=== PATIENT | female | born 1975 | race Caucasian/White ===

== ENCOUNTER 2024-06-21 18:39 | Inpatient (IN) | payer MEDICARE, OTHER ==
--- NOTE | 2024-06-21 19:26 | ED ---
Abdominal Pain HPI - General Chief Complaint: Abdominal Pain Stated Complaint: Abd pain Time Seen by Provider: 06/21/24 19:22 Source: patient, EMS, RN notes reviewed Mode of arrival: EMS - History of Present Illness Initial Comments: 49-year-old female with history of PCOS presenting for right lower quadrant abdominal pain x 5 days. Describes a constant pain with occasional shooting pains to the groin. States she has a history of PCOS with cysts worse on the right side and has been dealing with right pelvic pain for many years but states it is never been this bad. Also reports she has been dealing with intermittent vaginal bleeding for the past 4 months. States she bleeds more days than not. Reports the bleeding occasionally becomes heavy however today has only been light vaginal bleeding. 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 Also reports fevers over the past day however denies cough, nasal congestion, or sore throat. History of cholecystectomy. Denies vaginal discharge, nausea, vomiting, urinary symptoms, chest pain, or shortness of breath. She does admit a small amount of diarrhea this morning. - Related Data Allergies Allergy/AdvReac Type Severity Reaction Status Date / Time bee venom protein (honey bee) Allergy Swelling Verified 06/21/24 18:51 shellfish derived [Shellfish] Allergy Anaphylaxis Verified 06/21/24 18:51 Penicillins AdvReac Unknown Verified 06/21/24 18:51 Review of Systems ROS Statement: Those systems with pertinent positive or pertinent negative responses have been documented in the HPI. ROS Other: All systems not noted in ROS Statement are negative. Past Medical History Additional Past Medical History / Comment(s): PCOS, agoraphobia Past Surgical History: Cholecystectomy, Tonsillectomy Past Psychological History: Depression, Panic Disorder Smoking Status: Former smoker Past Alcohol Use History: Rare Past Drug Use History: None Reported General Exam General appearance: alert, in no apparent distress Head exam: Present: atraumatic, normocephalic, normal inspection Respiratory exam: Present: normal lung sounds bilaterally. Absent: respiratory distress, wheezes, rales, rhonchi, stridor Cardiovascular Exam: Present: regular rate, normal rhythm, normal heart sounds. Absent: systolic murmur, diastolic murmur, rubs, gallop, clicks GI/Abdominal exam: Present: soft, normal bowel sounds. Absent: distended, tenderness, guarding, rebound, rigid External exam: Present: normal external exam (MIKA Rice present for pelvic examination. Minimal vaginal active bleeding. Pelvic swabs taken at this time) Speculum exam: Present: vaginal bleeding. Absent: vaginal discharge Neurological exam: Present: alert, oriented X3 Psychiatric exam: Present: normal affect, normal mood Skin exam: Present: warm, dry, intact, normal color. Absent: rash Course Vital Signs 06/21/24 06/21/24 18:43 20:54 Temperature 101.4 F H 99.1 F Pulse Rate 125 H Respiratory 20 Rate Blood Pressure 167/81 O2 Sat by Pulse 98 Oximetry Medical Decision Making - Medical Decision Making Was pt. sent in by a medical professional or institution (, PA, RAILROAD CAR LOADER, urgent care, hospital, or group home...) When possible be specific @ -No Did you speak to anyone other than the patient for history (EMS, parent, family, police, friend...)? What history was obtained from this source @ -No Did you review nursing and triage notes (agree or disagree)? Why? @ -I reviewed and agree with nursing and triage notes Were old charts reviewed (outside hosp., previous admission, EMS record, old EKG, old radiological studies, urgent care reports/EKG's, group home records)? Report findings @ -No old charts were reviewed Differential Diagnosis (chest pain, altered mental status, abdominal pain women, abdominal pain men, vaginal bleeding, weakness, fever, dyspnea, syncope, headache, dizziness, GI bleed, back pain, seizure, CVA, palpatations, mental health, musculoskeletal)? @ -Differential Abdominal Pain Women: Appendicitis, Cholecystitis, diverticulosis, ischemic bowel, pancreatitis, hepatitis, UTI, gastroenteritis, AAA, incarcerated hernia, bowel obstruction, constipation, inflammatory bowel, hepatitis, peptic ulcer disease, splenic infarction, perforated viscus, vulvitis, ovarian torsion, PID, kidney stone, placenta abruption, this is not meant to be an all-inclusive list EKG interpreted by me (3pts min.). @ -None X-rays interpreted by me (1pt min.). @ -None done CT interpreted by me (1pt min.). @ -CT abdomen pelvis reveals enlarged heterogeneous enhancing uterine mass measuring up to 16.4 cm with abnormal thickened endometrium and indeterminate right ovarian 3.5 cm cystic lesion, multiple solid-appearing pulmonary nodules within bilateral lung bases. Findings concerning for malignancy within the uterus/endometrium and or ovary with metastatic lymph nodes and pulmonary nodules U/S interpreted by me (1pt. min.). @ -Pelvic ultrasound reveals complex structure seen within the mid pelvis may represent uterus versus pelvic mass, possible endometrial thickening measuring up to 3.1, small amount of free fluid in cul-de-sac, nonvisualization right ovary due to overlying bowel gas What testing was considered but not performed or refused? (CT, X-rays, U/S, labs)? Why? @ -None What meds were considered but not given or refused? Why? @ -None Did you discuss the management of the patient with other professionals (professionals i.e. , PA, RAILROAD CAR LOADER, lab, RT, psych nurse, director of social work, screw machine adjuster automatic, teacher, corporate security officer, case supervisor)? Give summary @ -I spoke with Jaquan from [facility] who accepts admission Was smoking cessation discussed for >3mins.? @ -No Was critical care preformed (if so, how long)? @ -yes, 45 minutes Were there social determinants of health that impacted care today? How? (Homelessness, low income, unemployed, alcoholism, drug addiction, transportation, low edu. Level, literacy, decrease access to med. care, retirement, rehab)? @ -No Was there de-escalation of care discussed even if they declined (Discuss DNR or withdrawal of care, Hospice)? DNR status @ -No What co-morbidities impacted this encounter? (DM, HTN, Smoking, COPD, CAD, Cancer, CVA, ARF, Chemo, Hep., AIDS, mental health diagnosis, sleep apnea, morbid obesity)? @ -None Was patient admitted / discharged? Hospital course, mention meds given and route, prescriptions, significant lab abnormalities, going to OR and other pertinent info. @ - admitted. 49-year-old female presenting for right lower quadrant abdominal pain x 5 days with vaginal bleeding and fevers. Patient has been dealing with intermittent vaginal bleeding for the past 4 months so she is unsure if this is related. She does have a history of PCOS and states this feels like the worst flareup she has ever had. She is well-appearing, no acute distress. She is febrile at 101.4, tachycardic at 125 bpm. Blood pressure 167/81. She was provided with Toradol en route. Abdomen is soft and nonsurgical. No CVA tenderness. Pelvic exam largely unremarkable, pelvic swabs sent at time of pelvic exam rule out PID. Provided with IV fluids and Tylenol. White blood cell count 23, hemoglobin 7.9, lactic 2.6. Urinalysis positive for nitrates and large amount of white blood cells and red blood cells highly indicative of urinary tract infection. Blood cultures were taken and patient was started on IV Rocephin and fluids for septic UTI. Pelvic ultrasound reveals complex structure seen within the mid pelvis may represent uterus versus pelvic mass, possible endometrial thickening measuring up to 3.1, small amount of free fluid in cul-de-sac, nonvisualization right ovary due to overlying bowel gas. CT abdomen pelvis reveals enlarged heterogeneous enhancing uterine mass measuring up to 16.4 cm with abnormal thickened endometrium and indeterminate right ovarian 3.5 cm cystic lesion, multiple solid-appearing pulmonary nodules within bilateral lung bases. Findings concerning for malignancy within the uterus/endometrium and or ovary with metastatic lymph nodes and pulmonary nodules. I discussed findings with patient. Discussed that findings in the CT scan are concerning for possible metastatic cancer. Patient will be admitted to medicine with Drug Abuse Resistance Education Officer consult. Undiagnosed new problem with uncertain prognosis? @ -No Drug Therapy requiring intensive monitoring for toxicity (Heparin, Nitro, Insulin, Cardizem)? @ -No Were any procedures done? @ -No Diagnosis/symptom? @ -Urinary tract infection with sepsis, metastatic uterine cancer Acute, or Chronic, or Acute on Chronic? @ -Acute Uncomplicated (without systemic symptoms) or Complicated (systemic symptoms)? @ -complicated Side effects of treatment? @ -No Exacerbation, Progression, or Severe Exacerbation? @ -No Poses a threat to life or bodily function? How? (Chest pain, [place], [place], pneumonia, PE, COPD, DKA, ARF, appy, cholecystitis, CVA, Diverticulitis, Homicidal, Suicidal, threat to staff... and all critical care pts) @ -yes - Lab Data Result diagrams: 06/21/24 19:41 06/21/24 19:41 Lab Results 06/21/24 06/21/24 06/21/24 Range/Units 19:41 19:41 19:41 WBC 22.92 H (4.50-10.00) 10*3/uL RBC 3.85 L (4.10-5.20) 10*6/uL Hgb 7.9 L (12.0-15.0) g/dL Hct 26.5 L (37.2-46.3) % MCV 68.8 L (80.0-97.0) fL MCH 20.5 L (27.0-32.0) pg MCHC 29.8 L (32.0-37.0) g/dL Plt Count 389 (140-440) 10*3/uL MPV 10.5 (9.5-12.2) fL Immature Gran % (Auto) 0.5 % Neutrophils % 82.2 % Lymphocytes % 4.5 % Monocytes % 12.5 % Eosinophils % 0.0 % Basophils % 0.3 % Immature Gran # 0.12 H (0.00-0.04) 10*3/uL Neutrophils # 18.81 H (1.80-7.70) 10*3/uL Lymphocytes # 1.03 (0.90-5.00) 10*3/uL Monocytes # 2.87 H (0.20-1.00) 10*3/uL Eosinophils # 0.01 L (0.04-0.35) 10*3/uL Basophils # 0.08 (0.00-0.10) 10*3/uL Sodium 133 L (137-145) mmol/L Potassium 3.9 (3.5-5.1) mmol/L Chloride 103 (98-107) mmol/L Carbon Dioxide 23 (22-30) mmol/L Anion Gap 7 mmol/L BUN 15 (7-17) mg/dL Creatinine 0.87 (0.52-1.04) mg/dL Est GFR (CKD-EPI)AfAm >90 (>60 ml/min/1.73 sqM) Est GFR (CKD-EPI)NonAf 78 (>60 ml/min/1.73 sqM) Glucose 122 H (74-99) mg/dL Lactic Ac Sepsis Rflx Plasma Lactic Acid Boy 2.6 H* (0.7-2.0) mmol/L Calcium 9.0 (8.4-10.2) mg/dL Total Bilirubin 0.7 (0.2-1.3) mg/dL AST 29 (14-36) U/L ALT 16 (4-34) U/L Alkaline Phosphatase 88 (38-126) U/L Total Protein 6.5 (6.3-8.2) g/dL Albumin 3.6 (3.5-5.0) g/dL Lipase 115 (23-300) U/L Urine Color Urine Appearance (Clear) Urine pH (5.0-8.0) Ur Specific Morris (1.001-1.035) Urine Protein (Negative) Urine Glucose (UA) (Negative) Urine Ketones (Negative) Urine Blood (Negative) Urine Nitrite (Negative) Urine Bilirubin (Negative) Urine Urobilinogen (<2.0) mg/dL Ur Leukocyte Esterase (Negative) Urine RBC (0-5) /hpf Urine WBC (0-5) /hpf Ur Squamous Epith Cells (0-4) /hpf Urine Bacteria (None) /hpf Urine Mucus (None) /hpf Urine HCG, Qual (Not Detectd) Influenza Type A (PCR) (Not Detectd) Influenza Type B (PCR) (Not Detectd) RSV (PCR) (Not Detectd) SARS-CoV-2 (PCR) (Not Detectd) Trichomonas Ag (Rapid) (Negative) 06/21/24 06/21/24 06/21/24 Range/Units 19:41 20:09 20:54 WBC (4.50-10.00) 10*3/uL RBC (4.10-5.20) 10*6/uL Hgb (12.0-15.0) g/dL Hct (37.2-46.3) % MCV (80.0-97.0) fL MCH (27.0-32.0) pg MCHC (32.0-37.0) g/dL Plt Count (140-440) 10*3/uL MPV (9.5-12.2) fL Immature Gran % (Auto) % Neutrophils % % Lymphocytes % % Monocytes % % Eosinophils % % Basophils % % Immature Gran # (0.00-0.04) 10*3/uL Neutrophils # (1.80-7.70) 10*3/uL Lymphocytes # (0.90-5.00) 10*3/uL Monocytes # (0.20-1.00) 10*3/uL Eosinophils # (0.04-0.35) 10*3/uL Basophils # (0.00-0.10) 10*3/uL Sodium (137-145) mmol/L Potassium (3.5-5.1) mmol/L Chloride (98-107) mmol/L Carbon Dioxide (22-30) mmol/L Anion Gap mmol/L BUN (7-17) mg/dL Creatinine (0.52-1.04) mg/dL Est GFR (CKD-EPI)AfAm (>60 ml/min/1.73 sqM) Est GFR (CKD-EPI)NonAf (>60 ml/min/1.73 sqM) Glucose (74-99) mg/dL Lactic Ac Sepsis Rflx Y Plasma Lactic Acid Boy (0.7-2.0) mmol/L Calcium (8.4-10.2) mg/dL Total Bilirubin (0.2-1.3) mg/dL AST (14-36) U/L ALT (4-34) U/L Alkaline Phosphatase (38-126) U/L Total Protein (6.3-8.2) g/dL Albumin (3.5-5.0) g/dL Lipase (23-300) U/L Urine Color Urine Appearance (Clear) Urine pH (5.0-8.0) Ur Specific Morris (1.001-1.035) Urine Protein (Negative) Urine Glucose (UA) (Negative) Urine Ketones (Negative) Urine Blood (Negative) Urine Nitrite (Negative) Urine Bilirubin (Negative) Urine Urobilinogen (<2.0) mg/dL Ur Leukocyte Esterase (Negative) Urine RBC (0-5) /hpf Urine WBC (0-5) /hpf Ur Squamous Epith Cells (0-4) /hpf Urine Bacteria (None) /hpf Urine Mucus (None) /hpf Urine HCG, Qual Not Detected (Not Detectd) Influenza Type A (PCR) Not Detected (Not Detectd) Influenza Type B (PCR) Not Detected (Not Detectd) RSV (PCR) Not Detected (Not Detectd) SARS-CoV-2 (PCR) Not Detected (Not Detectd) Trichomonas Ag (Rapid) (Negative) 06/21/24 06/21/24 Range/Units 20:54 21:28 WBC (4.50-10.00) 10*3/uL RBC (4.10-5.20) 10*6/uL Hgb (12.0-15.0) g/dL Hct (37.2-46.3) % MCV (80.0-97.0) fL MCH (27.0-32.0) pg MCHC (32.0-37.0) g/dL Plt Count (140-440) 10*3/uL MPV (9.5-12.2) fL Immature Gran % (Auto) % Neutrophils % % Lymphocytes % % Monocytes % % Eosinophils % % Basophils % % Immature Gran # (0.00-0.04) 10*3/uL Neutrophils # (1.80-7.70) 10*3/uL Lymphocytes # (0.90-5.00) 10*3/uL Monocytes # (0.20-1.00) 10*3/uL Eosinophils # (0.04-0.35) 10*3/uL Basophils # (0.00-0.10) 10*3/uL Sodium (137-145) mmol/L Potassium (3.5-5.1) mmol/L Chloride (98-107) mmol/L Carbon Dioxide (22-30) mmol/L Anion Gap mmol/L BUN (7-17) mg/dL Creatinine (0.52-1.04) mg/dL Est GFR (CKD-EPI)AfAm (>60 ml/min/1.73 sqM) Est GFR (CKD-EPI)NonAf (>60 ml/min/1.73 sqM) Glucose (74-99) mg/dL Lactic Ac Sepsis Rflx Plasma Lactic Acid Boy (0.7-2.0) mmol/L Calcium (8.4-10.2) mg/dL Total Bilirubin (0.2-1.3) mg/dL AST (14-36) U/L ALT (4-34) U/L Alkaline Phosphatase (38-126) U/L Total Protein (6.3-8.2) g/dL Albumin (3.5-5.0) g/dL Lipase (23-300) U/L Urine Color Yellow Urine Appearance Cloudy H (Clear) Urine pH 6.0 (5.0-8.0) Ur Specific Morris 1.026 (1.001-1.035) Urine Protein 1+ H (Negative) Urine Glucose (UA) Negative (Negative) Urine Ketones Trace H (Negative) Urine Blood Large H (Negative) Urine Nitrite Positive H (Negative) Urine Bilirubin Negative (Negative) Urine Urobilinogen 2.0 (<2.0) mg/dL Ur Leukocyte Esterase Large H (Negative) Urine RBC >182 H (0-5) /hpf Urine WBC >182 H (0-5) /hpf Ur Squamous Epith Cells 5 H (0-4) /hpf Urine Bacteria Moderate H (None) /hpf Urine Mucus Many H (None) /hpf Urine HCG, Qual (Not Detectd) Influenza Type A (PCR) (Not Detectd) Influenza Type B (PCR) (Not Detectd) RSV (PCR) (Not Detectd) SARS-CoV-2 (PCR) (Not Detectd) Trichomonas Ag (Rapid) Negative (Negative) Disposition Clinical Impression: Urinary tract infection, Sepsis, Uterine malignancy Disposition: ADMITTED IP TO THIS HOSP Referrals: Nonstaff,Physician [Primary Care Provider] - 1-2 days Time of Disposition: 23:46
[2024-06-21] MEDS: ACETAMINOPHEN TAB 500 MG TAB PO STA (19:47)
[2024-06-21] MEDS: SODIUM CHLORIDE 0.9% 1,000 ML IV STA ×2 (19:48→22:51)
[2024-06-21 19:55] LABS: Basophils # (A) 0.08 10*3/uL (0.00-0.10); Basophils % (A) 0.3 %; Eosinophils # (A) 0.01 10*3/uL (0.04-0.35); HCT 26.5 % (37.2-46.3); HGB 7.9 g/dL (12.0-15.0); Lymphocytes # (A) 1.03 10*3/uL (0.90-5.00); Lymphocytes % (A) 4.5 %; MCH 20.5 pg (27.0-32.0); MCHC 29.8 g/dL (32.0-37.0); MCV 68.8 fL (80.0-97.0); Mean Platelet Volume 10.5 fL (9.5-12.2); Monocytes # (A) 2.87 10*3/uL (0.20-1.00); Monocytes % (A) 12.5 %; Neutrophils # (A) 18.81 10*3/uL (1.80-7.70); Neutrophils % (A) 82.2 %; Platelet Count 389 10*3/uL (140-440); RBC 3.85 10*6/uL (4.10-5.20); RDW 18.6 % (11.5-14.5); WBC 22.92 10*3/uL (4.50-10.00)
[2024-06-21 20:06] LABS: ALT 16 U/L (4-34); AST 29 U/L (14-36); African American GFR (CKD) >90 (>60 ml/min/1.73 sqM); Albumin 3.6 g/dL (3.5-5.0); Alkaline Phosphatase 88 U/L (38-126); Anion Gap 7 mmol/L; Blood Urea Nitrogen 15 mg/dL (7-17); Carbon Dioxide 23 mmol/L (22-30); Chloride 103 mmol/L (98-107); Glucose 122 mg/dL (74-99); Lipase 115 U/L (23-300); Non-African American GFR(CKD) 78 (>60 ml/min/1.73 sqM); Potassium 3.9 mmol/L (3.5-5.1); Sodium 133 mmol/L (137-145); Total Bilirubin 0.7 mg/dL (0.2-1.3); Total Protein 6.5 g/dL (6.3-8.2)
[2024-06-21 20:35] LABS: Influenza A Not Detected (Not Detectd); Influenza B Not Detected (Not Detectd); RSV Not Detected (Not Detectd)
--- NOTE | 2024-06-21 20:52 | US ---
EXAMINATION TYPE: US pelvis complete transvag DATE OF EXAM: 06/21/2024 COMPARISON: NONE CLINICAL INDICATION: Female, 49 years old with history of Right lower quadrant abdominal pain, hx of PCOS; patient states right sided abd pain, hx pcos. Vaginal bleeding for 6 months. States clots and w eird discharge that looks like chunks of bubblegum TECHNIQUE: Transvaginal (TV) and Transabdominal (TA) . Transabdominal grayscale sonographic images of the pelvis were acquired. Transvaginal sonographic im ages were medically necessary to better assess the following anatomy: Uterus Doppler imaging: Color Doppler Images were obtained. Spectral doppler images were obtained. FINDINGS: Date of LMP: Unsure LMP, been bleeding for almost all of the last 6 months EXAM MEASUREMENTS: Uterus: not seen with certainty cm Endometrial Stripe: not seen with certainty. possible endometrium measures 3.1cm Right Ovary: possible right ovary measuring 3.1 x 2.2 x 2.7 cm Left Ovary: obscured by gas cm extremely limited due to large patient body habitus 1. Uterus: The uterus is difficult to delineate. Within the mid pelvis, there is a 17.0 x 12.2 x 15.1 cm complex area seen. Transvaginally, there is a 7.1 x 6.9 x 7.2 hyperechoic area seen within with va scularity 2. Endometrium: difficult to evaluate due to limitations 3. Right Ovary: appears wnl 4. Left Ovary: Obscured by overlying bowel gas Spectral, color and waveform doppler imaging shows good arterial and venous flow within the visuali zed right ovary; there is no evidence for ovarian torsion. 6. Posterior cul-de-sac: free fluid seen The uterus and endometrium are difficult to delineate. There is a complex structure is seen within th e mid pelvis measuring 17.0 x 12.2 x 15.1 cm. The right ovary appears within normal limits without ev idence of torsion. The left ovary is not visualized due to bowel gas. Free fluid is seen within the p osterior cul-de-sac. IMPRESSION: 1. Poor delineation of the uterus and endometrium. Complex structure seen within the mid pelvis whic h may represent the uterus versus pelvic mass. Possible endometrium thickening measuring up to 3.1 cm . Recommend further evaluation with MRI pelvis with IV contrast. 2. Small amount of free fluid in the posterior cul-de-sac. 3. Nonvisualization right ovary due to overlying bowel gas. [facility], , 06/21/2024 8:50 PM
[2024-06-21 21:12] LABS: Appearance,Urine Cloudy (Clear); Bacteria,Urine Moderate /hpf; Bilirubin,Urine Negative (Negative); Blood,Urine Large (Negative); Color,Urine Yellow; Glucose,Urine (UA) Negative (Negative); Ketones,Urine Trace (Negative); Leukocyte Esterase,Urine Large (Negative); Mucus,Urine Many /hpf; Nitrite,Urine Positive (Negative); Protein,Urine 1+ (Negative); RBC,Urine >182 /hpf (0-5); Specific Gravity,Urine 1.026 (1.001-1.035); Squamous Epithelial Cell,Urine 5 /hpf (0-4); WBC,Urine >182 /hpf (0-5)
--- NOTE | 2024-06-21 22:34 | CT ---
EXAMINATION TYPE: CT abdomen pelvis w con CT DLP: 6063.6 mGycm, Automated exposure control for dose reduction was used. DATE OF EXAM: 06/21/2024 10:12 PM COMPARISON: Pelvic ultrasound 06/21/2024 CLINICAL INDICATION:Female, 49 years old with history of RLQ abd pain; pt brought from home for lower R abd pain, fever, and vaginal bleeding with clots. TECHNIQUE: Standard CT of the abdomen and pelvis following the administration of 100 cc of Isovue 3 00 IV contrast material. Coronal and sagittal reformats were performed. FINDINGS: LOWER CHEST: Multiple solid bibasilar pulmonary nodules identified with examples including a lingular 1 cm nodule (series 204, image 1), a left lower lobe 1.1 cm pulmonary nodule (series 204, image 2) a nd a right lower lobe 1.4 cm pulmonary nodule (series 204, image 6). Mitral annulus calcifications. ABDOMEN LIVER: Unremarkable GALLBLADDER AND BILE DUCTS: The gallbladder is surgically absent. No biliary duct dilatation. PANCREAS: Unremarkable. SPLEEN: Unremarkable. ADRENAL GLANDS: Unremarkable. KIDNEYS AND URETERS: No evidence of hydronephrosis. No right renal calculi. Couple of nonobstructing left renal lower pole calculi measuring 4 mm. The kidneys enhance symmetrically. Contrast is demonstr ated within both collecting systems on the delayed phase. PELVIS BLADDER: Under distended, limiting evaluation. REPRODUCTIVE: Enlarged anteverted heterogenous enhancing lobulated uterus measuring 13.2 x 16.4 x 14. 4 cm in AP, TV, CC dimensions. The endometrium appears grossly 2.2 cm in thickness. Right ovarian rex earing cystic lesion measuring up to 3.5 cm. ABDOMEN & PELVIS STOMACH AND BOWEL: Stomach and duodenum are unremarkable. No gross evidence for focal bowel wall thic kening. The appendix is not definitively visualized. No evidence of bowel obstruction. PERITONEUM: No evidence of pneumoperitoneum. Small volume ascites throughout the abdomen and pelvis. VASCULATURE: No evidence of aortic aneurysm. MUSCULOSKELETAL: No acute osseous abnormalities. Nearly grade 2 anterolisthesis of L4 on L5 with bila teral pars defects and advanced degenerative disc disease. There is uncovering of the disc at this le jenny causing at least mild central canal stenosis. No aggressive osseous lesion. LYMPH NODES: Multiple enlarged retroperitoneal periaortic lymph nodes with exams including a left par acolic liver measuring up to 2.8 cm (series 201, image 45). Left common iliac chain lymph node measur ing up to 1.4 cm (series 201, image 53) right iliac chain lymph node measuring up to 2.6 cm (series 2 01, image 58), and a right iliac chain lymph node measuring up to 2.6 cm (series 201, image 69). Tobias tional mildly prominent and enlarged bilateral inguinal lymph nodes with example including a right in guinal lymph node measuring 1.1 cm short axis (series 201, image 78). SOFT TISSUE/ABDOMINAL WALL: Unremarkable IMPRESSION: Enlarged heterogenous enhancing uterine mass measuring up to 16.4 cm with abnormal thickened endometr ium and indeterminate right ovarian 3.5 cm cystic lesion. There are multiple abnormally enlarged nicole aortic and iliac chain lymph nodes. Additionally there are multiple solid appearing pulmonary nodules within the bilateral lung bases. Findings are highly concerning for malignancy within the uterus/end ometrium and/or ovary with metastatic lymph nodes and pulmonary nodules. Further workup is recommende d. Recommend further evaluation with CT chest and MRI pelvis. [facility], , 06/21/2024 10:32 PM
[2024-06-21] MEDS: KETOROLAC 15 MG/ML 1 ML VIAL IVP STA (23:31)
[2024-06-21] MEDS: MORPHINE SULFATE 2 MG/ML SYRINGE IVP ONE (23:32)
[2024-06-21] MEDS ORDERED: ONDANSETRON 4 MG/2 ML VIAL IVP PRN (23:41)
[2024-06-21] MEDS ORDERED: NALOXONE 0.4 MG/ML 1 ML VIAL IV PRN (23:41)
[2024-06-21] MEDS ORDERED: ACETAMINOPHEN TAB 325 MG TAB PO PRN (23:41)
[2024-06-21] MEDS: SODIUM CHLORIDE 0.9% 1,000 ML IV SCH (23:49)
[2024-06-22] MEDS: MORPHINE SULFATE 4 MG/ML SYRINGE IV PRN (05:05)
--- NOTE | 2024-06-22 08:52 | P.OBCN ---
History of Present Illness Consult date: 06/22/24 Reason for consult: other (suspected metastatic gynecologic cancer) Chief complaint: intractable abdominal pain History of present illness: Ms. Eden is a 49 year old G0 witha history of PCOS, class 3 obesity, and depressionwho presented to the ER yesterday evening with intractable abdominal pain over the past 3-4 days. She had taken ibuprofen and tylenol OTC without any improvement. The patient has never gone through a clear menopause. She had long, heavy periods in her 40s but for the past 6 months she has had nearly daily bleeding and spotting. 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 Pelvic US and CT of the Abdomen and Pelvis show an 16 cm enlarged uterus with a hypoechoic mass within, enlarged pelvic lymph notes, and pulmonary nodules concerning for endometrial cancer with metastasis. The patient notes that she has been more bloated in her abdomen over the past few months. She has intentionally lost nearly 100 pounds over the past 1-2 years with diet and exercise. The patient is not bleeding heavily this morning, only minor spotting. She is, however, noted to have a Hgb of 7.9 on admission. OBGYN history: G0. No history of abnormal pap smears. History of PCOS. Past Medical History: as above Medications: Metformin, Paxil Surgical History: Tonsillectomy, Cholecystectomy Social History: rare EtOH use, former tobacco use (quit ~10 years ago), no recreational drug use Past Medical History Past Medical History: Hypertension, Thyroid Disorder Additional Past Medical History / Comment(s): PCOS, agoraphobia, bronchitis History of Any Multi-Drug Resistant Organisms: None Reported Past Surgical History: Cholecystectomy, Tonsillectomy Smoking Status: Former smoker Medications and Allergies Home Medications Medication Instructions Recorded Confirmed Type ALPRAZolam [Xanax] 0.5 mg PO DAILY PRN 06/22/24 06/22/24 History Acetaminophen Tab [Tylenol Tab] 1,000 mg PO Q6H PRN 06/22/24 06/22/24 History Acetaminophen/Pamabrom [Midol 2 tab PO Q8H PRN 06/22/24 06/22/24 History Caplet] Ibuprofen [Motrin Ib] 800 mg PO Q6H PRN 06/22/24 06/22/24 History Lisdexamfetamine Dimesylate 70 mg PO DAILY 06/22/24 06/22/24 History [Vyvanse] Norethindrone [Laura] 0.35 mg PO DAILY 06/22/24 06/22/24 History PARoxetine HCL [Paxil] 40 mg PO DAILY 06/22/24 06/22/24 History metFORMIN HCL [Glucophage] 500 mg PO BID-W/MEALS 06/22/24 06/22/24 History Allergies Allergy/AdvReac Type Severity Reaction Status Date / Time bee venom protein (honey bee) Allergy Swelling/We Verified 06/22/24 06:55 lts/Dyspnea Penicillins Allergy itching Verified 06/22/24 06:55 throat and ears shellfish derived [Shellfish] Allergy Anaphylaxis Verified 06/22/24 06:55 Exam Vital Signs Temp Pulse Pulse Resp BP BP Pulse Ox 06/22/24 07:45 99.8 F H 95 19 133/79 96 06/22/24 06:20 98.9 F 100 18 150/88 97 06/22/24 05:11 98.3 F 90 18 172/94 98 06/22/24 04:00 95 18 167/78 96 06/22/24 00:57 103 H 18 175/84 96 06/21/24 23:57 99.0 F 100 18 184/90 98 06/21/24 20:54 99.1 F 06/21/24 18:43 101.4 F H 125 H 20 167/81 98 Intake and Output 06/21/24 06/22/24 06/22/24 22:59 06:59 14:59 Other: Weight 163.293 kg 163.293 kg Focused physical exam is performed. The patient is in no apparent distress, breathing is non-labored. Abdomen soft, non-tender to palpation. Abdominal exam limited by body habitus. Extremities are non-tender and non-edematous. Results Result Diagrams: 06/21/24 19:41 06/21/24 19:41 Abnormal Lab Results - Last 24 Hours (Table) 06/21/24 06/21/24 06/21/24 Range/Units 19:41 19:41 19:41 WBC 22.92 H (4.50-10.00) 10*3/uL RBC 3.85 L (4.10-5.20) 10*6/uL Hgb 7.9 L (12.0-15.0) g/dL Hct 26.5 L (37.2-46.3) % MCV 68.8 L (80.0-97.0) fL MCH 20.5 L (27.0-32.0) pg MCHC 29.8 L (32.0-37.0) g/dL Immature Gran # 0.12 H (0.00-0.04) 10*3/uL Neutrophils # 18.81 H (1.80-7.70) 10*3/uL Monocytes # 2.87 H (0.20-1.00) 10*3/uL Eosinophils # 0.01 L (0.04-0.35) 10*3/uL Sodium 133 L (137-145) mmol/L Glucose 122 H (74-99) mg/dL Plasma Lactic Acid Oby 2.6 H* (0.7-2.0) mmol/L Urine Appearance (Clear) Urine Protein (Negative) Urine Ketones (Negative) Urine Blood (Negative) Urine Nitrite (Negative) Ur Leukocyte Esterase (Negative) Urine RBC (0-5) /hpf Urine WBC (0-5) /hpf Ur Squamous Epith Cells (0-4) /hpf Urine Bacteria (None) /hpf Urine Mucus (None) /hpf 06/21/24 Range/Units 20:54 WBC (4.50-10.00) 10*3/uL RBC (4.10-5.20) 10*6/uL Hgb (12.0-15.0) g/dL Hct (37.2-46.3) % MCV (80.0-97.0) fL MCH (27.0-32.0) pg MCHC (32.0-37.0) g/dL Immature Gran # (0.00-0.04) 10*3/uL Neutrophils # (1.80-7.70) 10*3/uL Monocytes # (0.20-1.00) 10*3/uL Eosinophils # (0.04-0.35) 10*3/uL Sodium (137-145) mmol/L Glucose (74-99) mg/dL Plasma Lactic Acid Boy (0.7-2.0) mmol/L Urine Appearance Cloudy H (Clear) Urine Protein 1+ H (Negative) Urine Ketones Trace H (Negative) Urine Blood Large H (Negative) Urine Nitrite Positive H (Negative) Ur Leukocyte Esterase Large H (Negative) Urine RBC >182 H (0-5) /hpf Urine WBC >182 H (0-5) /hpf Ur Squamous Epith Cells 5 H (0-4) /hpf Urine Bacteria Moderate H (None) /hpf Urine Mucus Many H (None) /hpf Assessment and Plan Assessment: 49 year old G0 with suspected endometrial cancer with metastasis Plan: 1. Suspected endometrial cancer with mets. Recommend outpatient endometrial sampling to confirm diagnosis. 2. Blood loss anemia. Recommend oral iron daily. Transfuse >7 3. Abdominal pain. Pain management per primary team. Dispo: Recommend outpatient follow up in the next week to discuss endometrial sampling and work on referral to [facility] Onc. Thank you for this consult
[2024-06-22 13:26] LABS: N. gonorrhoeae,PCR Negative (Negative)
[2024-06-22] MEDS: HYDROcodone/APAP 5-325MG 1 EACH TAB PO PRN (14:31)
[2024-06-22 14:33] LABS: C. trachomatis,PCR Negative (Negative)
--- NOTE | 2024-06-22 15:23 | P.HPIM ---
History of Present Illness H&P Date: 06/22/24 This is a very pleasant 49-year-old female who presented to the emergency department with severe lower abdominal pain that had been progressively getting worse over the last week. Patient reports she has a primary care provider Dr. Marcial Ramos that comes to the house as she has significant history of agoraphobia and has not left her house in over 10 years. Patient reports to having past medical history of hypertension, hypothyroidism, PCOS, frequent bronchitis, anxiety/depression/panic disorder, used to smoke, rarely drinks alcohol and denies any other illicit drug use. Patient reports she has vaginal bleeding and is very lightly bleeding at this time although over the last year her bleeding has been progressively becoming worse. Patient also reports approximately 5 years ago she had an examination done at a seedling sorter and was told her endometrium was thickened but everything was "normal". Patient reports she has been having abnormal periods throughout most of her life. On admission labs reviewed showing a WBC of 22.92, hemoglobin 7.9, platelets 389, immature granulocytes at 0.12 elevated, neutrophils at 18.81 elevated, monocytes at 2.87 elevated, sodium is 133 with a potassium of 3.9, BUN is 15 with a creatinine of 0.87, random glucose was 122, lactic acid was 1.7, total bili 0.7, AST 29, ALT 16, urine was cloudy in appearance with a trace of ketones large blood and positive nitrates with large leukocyte Estrace noted, UCG was negative, virology testing including chlamydia, gonorrhea, trichomonas, RSV, COVID, influenza have all been negative. Patient was admitted as patient did have a CT abdomen pelvis which shows an enlarged heterogenous enhancing uterine mass measuring up to 16.4 cm with abnormal thickened endometrium and indeterminant right ovarian 3.5 cm cystic lesion with multiple abnormally enlarged. Aortic and iliac chain lymph nodes and additionally there are multiple solid-appearing pulmonary nodules within bilateral lung bases. Findings are highly concerning for malignancy within uterus endometrium and/or ovarian with metastatic lymph nodes and pulmonary nodules recommending further workup. Gynecology has evaluated the patient with suspected endometrial cancer with mets recommending outpatient endometrial sampling to confirm the diagnosis and also daily iron with outpatient follow-up likely with the gynecology oncologist and pain management as patient is reporting significant lower abdominal pain. REVIEW OF SYSTEMS: CONSTITUTIONAL: No fever, no malaise, no fatigue. HEENT: No recent visual problems or hearing problems. Denied any sore throat. CARDIOVASCULAR: No chest pain, orthopnea, PND, no palpitations, no syncope. PULMONARY: No shortness of breath, no cough, no hemoptysis. GASTROINTESTINAL: No diarrhea, no nausea, no vomiting, no abdominal pain. NEUROLOGICAL: No headaches, no weakness, no numbness. HEMATOLOGICAL: Denies any bleeding or petechiae. GENITOURINARY: Denies any burning micturition, frequency, or urgency. MUSCULOSKELETAL/RHEUMATOLOGICAL: Denies any joint pain, swelling, or any muscle pain. ENDOCRINE: Denies any polyuria or polydipsia. The rest of the 14-point review of systems is negative. PHYSICAL EXAMINATION: GENERAL: The patient is alert and oriented x3, not in any acute distress. Well developed, morbidly obese HEENT: Pupils are round and equally reacting to light. EOMI. No scleral icterus. No conjunctival pallor. Normocephalic, atraumatic. No pharyngeal erythema. No thyromegaly. CARDIOVASCULAR: S1 and S2 present. No murmurs, rubs, or gallops. PULMONARY: Chest is clear to auscultation, no wheezing or crackles. ABDOMEN: Soft, nontender, nondistended, normoactive bowel sounds. No palpable organomegaly. MUSCULOSKELETAL: No joint swelling or deformity. EXTREMITIES: No cyanosis, clubbing, or pedal edema. NEUROLOGICAL: Gross neurological examination did not reveal any focal deficits. SKIN: No rashes. Assessment: Lower abdominal pain, concerning for suspected endometrial cancer with metastasis as noted on CT imaging as it is noted a heterogenous enhancing lobulated uterine mass measuring up to 16.4 cm with abnormal thickened endometrium and a right ovarian 3.5 cm cystic lesion Leukocytosis, possibly reactive with concerns of possible acute urinary tract infection Lactic acidosis, on admission, possibly secondary to decreased oral intake with acute dehydration, resolved after IV hydration Possible acute urinary tract infection, present on admission with suprapubic pain and frequency with urination, urine cultures pending Multiple abnormal lymph nodes and nodules noted of bilateral lung bases Anemia, likely chronic History of PCOS History of hypertension History of agoraphobia Morbid obesity with a BMI of 63.8 History of bronchitis History of anxiety/depression/panic disorder Former smoker GI prophylaxis DVT prophylaxis Full code Plan: Patient was admitted with severe lower abdominal pain having decreased appetite and pain with pressure started on antibiotics in the form of ceftriaxone with concerns of urinary tract infection. Urine culture is pending and will continue IV antibiotics at this time for now. Patient underwent CT imaging as mentioned above and OB gynecology was consulted as there is a heterogenous enhancing uterine mass measuring up to 16.4 cm with an abnormally thickened endometrium and a right ovarian 3.5 cm cystic lesion wi th multiple abnormal. Aortic and iliac chain lymph nodes along with multiple solid-appearing pulmonary nodules within the lung bases. Highly concerning for malignancy with metastasis. Patient was evaluated by gynecology recommending outpatient biopsy and further imaging Patient will need outpatient follow-up with oncology as well as possible gynecology oncology and will arrange for patient to follow-up in the clinic to establish after biopsy Patient sees a primary care provider in her home as she has significant agoraphobia and has not been out of the home in over 10 years. Patient to continue with pain management and working on weaning off IV pain medications and finding appropriate management to tolerate patient's pain for going home with If pain is controlled, consider possible discharge planning in the next 24 hours The impression and plan of care has been dictated by Stephenie Miller, Nurse Practitioner as directed. Dr. Ivett MD I have performed a history and examination and MDM of this patient, discussed the same with the dictator, and agree with the dictator's assessment and plan as written ,documented as a scribe. Based on total visit time, I have performed more than 50% of the visit. Past Medical History Past Medical History: Hypertension, Thyroid Disorder Additional Past Medical History / Comment(s): PCOS, agoraphobia, bronchitis History of Any Multi-Drug Resistant Organisms: None Reported Past Surgical History: Cholecystectomy, Tonsillectomy Smoking Status: Former smoker Medications and Allergies Home Medications Medication Instructions Recorded Confirmed Type ALPRAZolam [Xanax] 0.5 mg PO DAILY PRN 06/22/24 06/22/24 History Acetaminophen Tab [Tylenol Tab] 1,000 mg PO Q6H PRN 06/22/24 06/22/24 History Acetaminophen/Pamabrom [Midol 2 tab PO Q8H PRN 06/22/24 06/22/24 History Caplet] Ibuprofen [Motrin Ib] 800 mg PO Q6H PRN 06/22/24 06/22/24 History Lisdexamfetamine Dimesylate 70 mg PO DAILY 06/22/24 06/22/24 History [Vyvanse] Norethindrone [Laura] 0.35 mg PO DAILY 06/22/24 06/22/24 History PARoxetine HCL [Paxil] 40 mg PO DAILY 06/22/24 06/22/24 History metFORMIN HCL [Glucophage] 500 mg PO BID-W/MEALS 06/22/24 06/22/24 History Allergies Allergy/AdvReac Type Severity Reaction Status Date / Time bee venom protein (honey bee) Allergy Swelling/We Verified 06/22/24 06:55 lts/Dyspnea Penicillins Allergy itching Verified 06/22/24 06:55 throat and ears shellfish derived [Shellfish] Allergy Anaphylaxis Verified 06/22/24 06:55 Physical Exam Vitals: Vital Signs Temp Pulse Pulse Resp BP BP Pulse Ox 06/22/24 07:45 99.8 F H 95 19 133/79 96 06/22/24 06:20 98.9 F 100 18 150/88 97 06/22/24 05:11 98.3 F 90 18 172/94 98 06/22/24 04:00 95 18 167/78 96 06/22/24 00:57 103 H 18 175/84 96 06/21/24 23:57 99.0 F 100 18 184/90 98 06/21/24 20:54 99.1 F 06/21/24 18:43 101.4 F H 125 H 20 167/81 98 Intake and Output 06/21/24 06/22/24 06/22/24 22:59 06:59 14:59 Other: Weight 163.293 kg 163.293 kg Results CBC & Chem 7: 06/21/24 19:41 06/21/24 19:41 Labs: Abnormal Lab Results - Last 24 Hours (Table) 06/21/24 06/21/24 06/21/24 Range/Units 19:41 19:41 19:41 WBC 22.92 H (4.50-10.00) 10*3/uL RBC 3.85 L (4.10-5.20) 10*6/uL Hgb 7.9 L (12.0-15.0) g/dL Hct 26.5 L (37.2-46.3) % MCV 68.8 L (80.0-97.0) fL MCH 20.5 L (27.0-32.0) pg MCHC 29.8 L (32.0-37.0) g/dL Immature Gran # 0.12 H (0.00-0.04) 10*3/uL Neutrophils # 18.81 H (1.80-7.70) 10*3/uL Monocytes # 2.87 H (0.20-1.00) 10*3/uL Eosinophils # 0.01 L (0.04-0.35) 10*3/uL Sodium 133 L (137-145) mmol/L Glucose 122 H (74-99) mg/dL Plasma Lactic Acid Boy 2.6 H* (0.7-2.0) mmol/L Urine Appearance (Clear) Urine Protein (Negative) Urine Ketones (Negative) Urine Blood (Negative) Urine Nitrite (Negative) Ur Leukocyte Esterase (Negative) Urine RBC (0-5) /hpf Urine WBC (0-5) /hpf Ur Squamous Epith Cells (0-4) /hpf Urine Bacteria (None) /hpf Urine Mucus (None) /hpf 06/21/24 Range/Units 20:54 WBC (4.50-10.00) 10*3/uL RBC (4.10-5.20) 10*6/uL Hgb (12.0-15.0) g/dL Hct (37.2-46.3) % MCV (80.0-97.0) fL MCH (27.0-32.0) pg MCHC (32.0-37.0) g/dL Immature Gran # (0.00-0.04) 10*3/uL Neutrophils # (1.80-7.70) 10*3/uL Monocytes # (0.20-1.00) 10*3/uL Eosinophils # (0.04-0.35) 10*3/uL Sodium (137-145) mmol/L Glucose (74-99) mg/dL Plasma Lactic Acid Boy (0.7-2.0) mmol/L Urine Appearance Cloudy H (Clear) Urine Protein 1+ H (Negative) Urine Ketones Trace H (Negative) Urine Blood Large H (Negative) Urine Nitrite Positive H (Negative) Ur Leukocyte Esterase Large H (Negative) Urine RBC >182 H (0-5) /hpf Urine WBC >182 H (0-5) /hpf Ur Squamous Epith Cells 5 H (0-4) /hpf Urine Bacteria Moderate H (None) /hpf Urine Mucus Many H (None) /hpf Thrombosis Risk Factor Assmnt - DVT/VTE Prophylaxis DVT/VTE Prophylaxis: Mechanical Prophylaxis ordered - Choose All That Apply Any of the Below Risk Factors Present?: Yes Each Factor Represents 1 point: Age 41-60 years, Obesity (BMI >25), Sepsis (< 1month), Swollen legs (current), Varicose veins Other Risk Factors: Yes Each Risk Factor Represents 2 Points: Malignancy Other congenital or acquired thrombophilia - If yes, enter type in comment: No Thrombosis Risk Factor Assessment Total Risk Factor Score: 7 Thrombosis Risk Factor Assessment Level: High Risk Assessment and Plan Time with Patient: Greater than 30
--- NOTE | 2024-06-22 17:43 | CT ---
EXAMINATION TYPE: CT chest wo con DATE OF EXAM: 06/22/2024 5:12 PM COMPARISON: CT abdomen pelvis 06/21/2024. CLINICAL INDICATION: Female, 49 years old with history of nodules noted on ct abd; PHH, lung nodules seen on ct abdomen TECHNIQUE: Multiple axial images were obtained through the chest. Sagittal and coronal reformats were created for review. MIP was performed on a separate workstation. Contrast used: mL of (None if empty) Oral contrast used: (None if empty) CT DLP: 692.4 mGycm, Automated exposure control for dose reduction was used. FINDINGS: LUNGS/ PLEURA: There are multiple pulmonary nodules throughout the lungs greater than 20, examples in clude 20 mm in the right upper lobe, 13 mm right middle lobe, 16 mm and right lower lobe, 27 mm in le ft lower lobe and 12 mm in the left upper lobe. No focal consolidation, pneumothorax or pleural effus ion. AIRWAY: Patent and unremarkable. HEART: Size within normal limits. No significant coronary artery calcifications. MEDIASTINUM: No gross evidence of adenopathy. VASCULATURE: No aortic aneurysm. MUSCULOSKELETAL: Mild disc degeneration changes are present throughout the thoracolumbar spine second jake to osteophyte formation and facet joint arthropathy. SOFT TISSUES/LYMPH NODES: Unremarkable. LOWER NECK: No significant findings. UPPER ABDOMEN: Low attenuation to liver suggestive of hepatic steatosis. The gallbladder surgically a bsent. IMPRESSION: Scattered pulmonary nodules in the lungs measuring up to 27 mm concerning for metastatic disease unti l proven otherwise. Given retroperitoneal lymphadenopathy and heterogenous uterus findings concerning for uterine etiology possibly endometrial carcinoma. Further gynecologic workup recommended. [facility], , 06/22/2024 5:41 PM
[2024-06-22 19:24] VITALS: RESP 16
[2024-06-22] MEDS: PANTOPRAZOLE 40 MG/10 ML VIAL IVP SCH (20:48)
[2024-06-23] MEDS: HYDROcodone/APAP 7.5-325MG 1 EACH TAB PO PRN (04:09)
[2024-06-23 08:22] LABS: HCT 25.2 % (37.2-46.3); HGB 7.1 g/dL (12.0-15.0); MCH 19.8 pg (27.0-32.0); MCHC 28.2 g/dL (32.0-37.0); MCV 70.2 FL (80.0-97.0); Mean Platelet Volume 11.2 FL (9.5-12.2); NRBC Per 100 WBC 0 X 10*3/uL (0.00-0.01); Platelet Count 367 X 10*3/uL (140-440); RBC 3.59 X 10*6/uL (4.10-5.20); RDW 18.9 % (11.5-14.5); WBC 17.01 X 10*3/uL (4.50-10.00)
[2024-06-23] MEDS: KETOROLAC 15 MG/ML 1 ML VIAL IVP PRN (09:30)
[2024-06-23 10:43] LABS: % Iron Saturation 4.01 (12.00-45.00); ALT 29 U/L (8-44); AST 43 U/L (13-35); Albumin 3.3 g/dL (3.8-4.9); Albumin/Globulin Ratio 1.14 Ratio (1.60-3.17); Alkaline Phosphatase 115 U/L (41-126); BUN/Creat Ratio 17.78 Ratio (12.00-20.00); Calcium 8.7 mg/dL (8.7-10.3); Carbon Dioxide 17.9 mmol/L (21.6-31.8); Chloride 101 mmol/L (96-109); Ferritin 51.2 ng/mL (10.0-291.0); Globulin 2.9 g/dL (1.6-3.3); Glucose 125 mg/dL (70-110); Iron 11 UG/DL (50-170); Magnesium 1.9 mg/dL (1.5-2.4); Potassium 4.1 mmol/L (3.5-5.5); Sodium 133 mmol/L (135-145); Total Bilirubin 0.5 mg/dL (0.3-1.2); Total Iron Binding Capacity 274 UG/DL (228-460); Total Protein 6.2 g/dL (6.2-8.2)
[2024-06-23 12:30] LABS: Basophils # (A) 0.07 X 10*3/uL (0.00-0.10); Basophils % (A) 0.4 %; Eosinophils # (A) 0.12 X 10*3/uL (0.04-0.35); Eosinophils % (A) 0.7 %; Lymphocytes # (A) 1.17 X 10*3/uL (0.90-5.00); Lymphocytes % (A) 6.9 %; Monocytes # (A) 3.04 X 10*3/uL (0.20-1.00); Monocytes % (A) 17.9 %; Neutrophils # (A) 12.54 X 10*3/uL (1.80-7.70); Neutrophils % (A) 73.7 %; RBC Morphology Normal (Normal)
[2024-06-23] MEDS: SODIUM FERRIC GLUCONAT-SUCROSE 125 MG in SODIUM CHLORIDE 0.9% 100 ML IVPB SCH (17:56)
--- NOTE | 2024-06-23 19:05 | P.PN ---
Subjective Progress Note Date: 06/23/24 This is a very pleasant 49-year-old female who presented to the emergency department with severe lower abdominal pain that had been progressively getting worse over the last week. Patient reports she has a primary care provider Dr. Marcial aRmos that comes to the house as she has significant history of agoraphobia and has not left her house in over 10 years. Patient reports to having past medical history of hypertension, hypothyroidism, PCOS, frequent bronchitis, anxiety/depression/panic disorder, used to smoke, rarely drinks alcohol and denies any other illicit drug use. Patient reports she has vaginal bleeding and is very lightly bleeding at this time although over the last year her bleeding has been progressively becoming worse. Patient also reports approximately 5 years ago she had an examination done at a complex case manager and was told her endometrium was thickened but everything was "normal". Patient reports she has been having abnormal periods throughout most of her life. On admission labs reviewed showing a WBC of 22.92, hemoglobin 7.9, platelets 389, immature granulocytes at 0.12 elevated, neutrophils at 18.81 elevated, monocytes at 2.87 elevated, sodium is 133 with a potassium of 3.9, BUN is 15 with a creatinine of 0.87, random glucose was 122, lactic acid was 1.7, total bili 0.7, AST 29, ALT 16, urine was cloudy in appearance with a trace of ketones large blood and posit celso nitrates with large leukocyte Estrace noted, UCG was negative, virology testing including chlamydia, gonorrhea, trichomonas, RSV, COVID, influenza have all been negative. Patient was admitted as patient did have a CT abdomen pelvis which shows an enlarged heterogenous enhancing uterine mass measuring up to 16.4 cm with abnormal thickened endometrium and indeterminant right ovarian 3.5 cm cystic lesion with multiple abnormally enlarged. Aortic and iliac chain lymph nodes and additionally there are multiple solid-appearing pulmonary nodules within bilateral lung bases. Findings are highly concerning for malignancy within uterus endometrium and/or ovarian with metastatic lymph nodes and pulmonary nodules recommending further workup. Gynecology has evaluated the patient with suspected endometrial cancer with mets recommending outpatient endometrial sampling to confirm the diagnosis and also daily iron with outpatient follow-up likely with the gynecology oncologist and pain management as patient is reporting significant lower abdominal pain. 06/23/2024 Patient seen in follow-up today reporting her pain is somewhat improved although the pain medication is wearing off prior to 4 hours and is concerned about going home with continued pain. Patient was evaluated by gynecology recommending outpatient follow-up in the clinic for possible biopsy and/or possible surgically planned biopsy in the OR given patient's body habitus and will be done outpatient. This was discussed with gynecology and confirmed. Patient is afebrile and denies chest pain or shortness of breath. Patient reports to tolerating diet with no reported nausea or vomiting. Patient is maintained on [place] and Toradol and will transition to Percocet and Ultram with plans on going home on oral medication. Patient was requesting if all her procedures and testings could be done here while inpatient although many of these are only outpatient basis only and this was discussed once again with her as we are un able to perform these and patient does not warrant a transfer to another facility for tertiary care. Patient will be provided with resources for outpatient follow-up and further testing. Patient reports she will most likely go home and not follow-up as she has severe agoraphobia and has not been out of her home in almost 10 years. Patient is very tearful on exam and discussed with her about continuing with seeking treatment and getting an actual diagnosis which will require going outside for the doctors offices and visits and follow- up. Discussed the philosophy of hospice and consulted for informational meeting with them to gather more information if patient decides to not seek medical t reatment. Hemoglobin on the lower side at 7.1 with very faint vaginal bleeding noted that has been chronic for over a year. Iron studies suggestive of iron deficiency anemia and will give IV iron infusion. Will adjust pain medications discussed discharge planning in 24 hours. Review of systems: Constitutional: No reports of fatigue, fever, or chills Cardiovascular: No reports of chest pain or palpitations Respiratory: No reports of shortness of breath or cough GI: No reports of nausea, vomiting, or diarrhea, reports of continued lower abdominal discomfort although slightly improved from yesterday : No reports of dysuria or retention Neurovascular: No reports of weakness or numbness All medications have been reviewed PHYSICAL EXAMINATION: GENERAL: The patient is alert and oriented x3, tearful on exam. Well developed, morbidly obese HEENT: Pupils are round and equally reacting to light. EOMI. No scleral icterus. No conjunctival pallor. Normocephalic, atraumatic. No pharyngeal erythema. No thyromegaly. CARDIOVASCULAR: S1 and S2 present. No murmurs, rubs, or gallops. PULMONARY: Chest is clear to auscultation, no wheezing or crackles. ABDOMEN: Soft, morbidly obese nontender, nondistended, normoactive bowel sounds. No palpable organomegaly. MUSCULOSKELETAL: No joint swelling or deformity. EXTREMITIES: No cyanosis, clubbing, or pedal edema. NEUROLOGICAL: Gross neurological examination did not reveal any focal deficits. SKIN: No rashes. Assessment: Lower abdominal pain, concerning for highly suspected endometrial cancer with metastasis as noted on CT imaging as it is noted a heterogenous enhancing lobulated uterine mass measuring up to 16.4 cm with abnormal thickened endometrium and a right ovarian 3.5 cm cystic lesion Leukocytosis, possibly reactive with concerns of possible acute urinary tract infection, present on admission although UTI suspicion is low, likely asymptomatic bacteriuria as patient is denying any pain, burning, or frequency of urination Lactic acidosis, on admission, possibly secondary to decreased oral intake with acute dehydration, resolved after IV hydration Possible acute urinary tract infection, present on admission, likely asy mptomatic bacteriuria as patient is denying pain, burning, frequency with urination Multiple abnormal lymph nodes and nodules noted of bilateral lung bases, as confirmed on CT of the chest as well Anemia, likely chronic, iron deficiency anemia History of PCOS History of hypertension History of agoraphobia Morbid obesity with a BMI of 63.8 History of bronchitis History of anxiety/depression/panic disorder Former smoker GI prophylaxis DVT prophylaxis Full code Plan: Patient was admitted with severe lower abdominal pain having decreased appetite and pain with pressure started on antibiotics in the form of ceftriaxone with concerns of urinary tract infection. Urine culture is pending and has received ceftriaxone, preliminary showing gram-negative bacilli although suspicion for urinary tract infection is low as patient is denying any pain, burning, or frequency. Antibiotics will be discontinued and monitored closely off antibiotic treatment WBC is trending down and patient is afebrile Patient underwent CT imaging as mentioned above and OB gynecology evaluated the patient as there is a heterogenous enhancing uterine mass measuring up to 16.4 cm with an abnormally thickened endometrium and a right ovarian 3.5 cm cystic lesion with multiple abnormal. Aortic and iliac chain lymph nodes along with multiple solid-appearing pulmonary nodules within the lung bases. Highly concerning for malignancy with metastasis. Patient was evaluated by gynecology recommending outpatient biopsy and further imaging Patient will need outpatient follow-up with oncology as well as possible gynecol ogy oncology and will arrange for patient to follow-up in the clinic to establish after biopsy Patient sees a primary care provider in her home as she has significant agoraphobia and has not been out of the home in over 10 years. Patient to continue with pain management and working on safe discharge planning with appropriate pain management. Weaning off IV pain medications and patient has not required IV morphine in 24 hours. Patient is reporting the [place]'s are wearing off and will change to Percocet and monitor for better pain control with discharge planning in 24 hours. Will also provide stool softener Patient extremely tearful on exam and reports when she goes home she will likely not follow-up and not leave her home again. Discussed with her at length the importance of continuing to seek treatment if that is her ultimate goal which will require multiple visits in the outpatient setting. Patient will need further imaging, testing, possible treatment with chemo, surgical, radiation moving forward and recommend counseling also outpatient regarding her agoraphobia. Discussed hospice and will consult for informational only. Will monitor overnight for better pain control and discharge in 24 hours The impression and plan of care has been dictated by Stephenie Miller, Nurse Practitioner as directed. Dr. Ivett MD I have performed a history and examination and MDM of this patient, discussed the same with the dictator, and agree with the dictator's assessment and plan as written ,documented as a scribe. Based on total visit time, I have performed more than 50% of the visit. Objective - Vital Signs Vital signs: Vital Signs Temp 98.8 F 06/23/24 06:38 Pulse 78 06/23/24 06:38 Resp 16 06/23/24 06:38 BP 137/83 06/23/24 06:38 Pulse Ox 96 06/23/24 06:38 FiO2 Intake & Output 06/22/24 06/23/24 06/23/24 18:59 06:59 18:59 Intake Total 1555 Balance 1555 Weight 163.293 kg Intake: Intake, IV Titration 1555 Amount Sodium Chloride 0.9% 1, 1430 000 ml @ 130 mls/hr IV . [id number] STA Rx#:[id number] Sodium Chloride 0.9% 1, 75 000 ml @ 75 mls/hr IV . [id number] RYLEE Rx#:[id number] cefTRIAXone 2 gm In 50 Sodium Chloride 0.9% 50 ml @ 100 mls/hr IVPB ONCE STA Rx#:[id number] Other: # Voids 3 - Labs CBC & Chem 7: 06/23/24 05:40 06/23/24 05:40 Labs: Abnormal Lab Results - Last 24 Hours (Table) 06/23/24 Range/Units 05:40 WBC 17.01 H (4.50-10.00) X 10*3/uL RBC 3.59 L (4.10-5.20) X 10*6/uL Hgb 7.1 L (12.0-15.0) g/dL Hct 25.2 L (37.2-46.3) % MCV 70.2 L (80.0-97.0) FL MCH 19.8 L (27.0-32.0) pg MCHC 28.2 L (32.0-37.0) g/dL RDW 18.9 H (11.5-14.5) %
[2024-06-23] MEDS: oxyCODONE-APAP 7.5-325MG 1 EACH TAB PO PRN (20:29)
[2024-06-24 08:55] LABS: Basophils # (A) 0.07 10*3/uL (0.00-0.10); Basophils % (A) 0.4 %; Eosinophils # (A) 0.42 10*3/uL (0.04-0.35); Eosinophils % (A) 2.6 %; HCT 26.9 % (37.2-46.3); HGB 7.8 g/dL (12.0-15.0); Lymphocytes # (A) 1.41 10*3/uL (0.90-5.00); Lymphocytes % (A) 8.6 %; MCH 20.4 pg (27.0-32.0); MCV 70.4 fL (80.0-97.0); Mean Platelet Volume 10.3 fL (9.5-12.2); Monocytes # (A) 2.48 10*3/uL (0.20-1.00); Monocytes % (A) 15.1 %; Neutrophils # (A) 11.98 10*3/uL (1.80-7.70); Neutrophils % (A) 72.8 %; Platelet Count 440 10*3/uL (140-440); RBC 3.82 10*6/uL (4.10-5.20); RDW 18.9 % (11.5-14.5); WBC 16.45 10*3/uL (4.50-10.00)
[2024-06-24 13:28] VITALS: BP 132/83; PULSE 85; TEMP 97.7
[2024-06-24] MEDS: PARoxetine 20 MG TAB PO SCH (13:32)
[2024-06-24] MEDS: traMADol 50 MG TAB PO PRN (13:38)
[2024-06-24] MEDS: ALPRAZolam 1 MG TAB PO STA (16:16)
== END 2024-06-24 18:35 | disposition home or self-care (01) | DRG 755 ==
LOC: EC 18:39 → 5NMEDONC 23:45
PROVIDERS: ADMIT Hospitalist; ATTEND Hospitalist
DX: C54.1 Malignant neoplasm of endometrium (principal); C78.01 Secondary malignant neoplasm of right lung; C78.02 Secondary malignant neoplasm of left lung; E87.20 Acidosis, unspecified; Z68.44 Body mass index [BMI] 60.0-69.9, adult; I10 Essential (primary) hypertension; F32.A Depression, unspecified; D50.0 Iron deficiency anemia secondary to blood loss (chronic); E66.813 Obesity, class 3; E86.0 Dehydration; E28.2 Polycystic ovarian syndrome; F40.00 Agoraphobia, unspecified; N93.9 Abnormal uterine and vaginal bleeding, unspecified; R82.71 Bacteriuria; N85.2 Hypertrophy of uterus; F41.0 Panic disorder [episodic paroxysmal anxiety]; R91.8 Other nonspecific abnormal finding of lung field; Z87.891 Personal history of nicotine dependence; Z91.198 Patient's noncompliance with other medical treatment and regimen for other reason; Z79.84 Long term (current) use of oral hypoglycemic drugs; Z79.899 Other long term (current) drug therapy
CPT/HCPCS: 36415; 71250; 74177; 76830; 76856; 80053; 81001; 81025; 82728; 83540; 83550; 83605; 83690; 83735; 85025; 87040; 87077; 87086; 87186; 87491; 87591; 87636; 87808; 93976; 96361; 96365; 96375; 96376; 99291

== ENCOUNTER 2024-07-04 12:16 | Inpatient (IN) | payer MEDICARE ==
--- NOTE | 2024-07-04 12:56 | ED ---
Back Pain HPI - General Chief Complaint: Back Pain/Injury Stated Complaint: vaginal bleeding Time Seen by Provider: 07/04/24 12:56 Source: patient, EMS, RN notes reviewed - History of Present Illness Initial Comments: 49-year-old female presenting for pelvic pain/low back pain. Patient states 2 weeks ago she was seen here in the ER for pelvic pain and vaginal bleeding and was diagnosed with likely metastatic uterine cancer. She was discharged with follow-up with looper operator at [facility]. States her follow-up appointment was today however they called and canceled due to an emergency surgery. Patient states she was very frustrated because she is in a lot of pelvic/back pain every day and decided to come to the ER. Patient states she has agoraphobia and before previous admission 2 weeks ago, had not left her house in approximately 10 years. [facility] recommended patient was also seen at a specialist in [place] however patient refuses this. Patient does endorse intermittent vaginal bleeding, however reports bleeding is light today. She has been taking Percocet and tramadol as needed which has provided minimal relief of symptoms. - Related Data Home Medications Medication Instructions Recorded Confirmed ALPRAZolam [Xanax] 0.5 mg PO DAILY PRN 06/22/24 07/04/24 Acetaminophen Tab [Tylenol] 1,000 mg PO Q6H PRN 06/22/24 07/04/24 Acetaminophen/Pamabrom [Midol 2 tab PO Q8H PRN 06/22/24 07/04/24 Caplet] Ibuprofen [Motrin Ib] 800 mg PO Q6H PRN 06/22/24 07/04/24 Lisdexamfetamine Dimesylate 70 mg PO DAILY 06/22/24 07/04/24 [Vyvanse] Norethindrone [Laura] 0.35 mg PO DAILY 06/22/24 07/04/24 PARoxetine HCL [Paxil] 40 mg PO DAILY 06/22/24 07/04/24 metFORMIN HCL [Glucophage] 500 mg PO BID-W/MEALS 06/22/24 07/04/24 Docusate [Colace] 100 mg PO BID PRN 07/04/24 07/04/24 oxyCODONE-APAP 7.5-325MG [Percocet 1 tab PO Q4HR PRN 07/04/24 07/04/24 7.5-325 mg] Previous Rx's Medication Instructions Recorded Ferrous Sulfate [Feosol] 325 mg PO DAILY #30 tab 06/24/24 Pantoprazole [Protonix] 40 mg PO DAILY #30 tab 06/24/24 traMADol HCl [Ultram] 50 mg PO TID PRN #12 tab 06/24/24 Allergies Allergy/AdvReac Type Severity Reaction Status Date / Time bee venom protein (honey bee) Allergy Swelling/We Verified 07/04/24 17:38 lts/Dyspnea Penicillins Allergy itching Verified 07/04/24 17:38 throat and ears shellfish derived [Shellfish] Allergy Anaphylaxis Verified 07/04/24 17:38 Review of Systems ROS Statement: Those systems with pertinent positive or pertinent negative responses have been documented in the HPI. ROS Other: All systems not noted in ROS Statement are negative. Past Medical History Past Medical History: Hypertension, Thyroid Disorder Additional Past Medical History / Comment(s): PCOS, agoraphobia, bronchitis History of Any Multi-Drug Resistant Organisms: None Reported Past Surgical History: Cholecystectomy, Tonsillectomy Past Psychological History: Anxiety, Depression, Panic Disorder Smoking Status: Former smoker General Exam General appearance: alert, in no apparent distress Head exam: Present: atraumatic, normocephalic, normal inspection Eye exam: Present: normal appearance, PERRL, EOMI. Absent: scleral icterus, conjunctival injection, periorbital swelling GI/Abdominal exam: Present: soft, normal bowel sounds. Absent: distended, tenderness, guarding, rebound, rigid Neurological exam: Present: alert, oriented X3 Psychiatric exam: Present: normal affect, normal mood Skin exam: Present: warm, dry, intact, normal color. Absent: rash Course Vital Signs 07/04/24 07/04/24 12:19 14:33 Temperature 100.8 F H 99.3 F Pulse Rate 100 101 H Respiratory 18 20 Rate Blood Pressure 132/92 146/95 O2 Sat by Pulse 100 100 Oximetry Medical Decision Making - Medical Decision Making Was pt. sent in by a medical professional or institution (, PA, ROUTE DELIVERER, urgent care, hospital, or snf...) When possible be specific @ -No Did you speak to anyone other than the patient for history (EMS, parent, family, police, friend...)? What history was obtained from this source @ -No Did you review nursing and triage notes (agree or disagree)? Why? @ -I reviewed and agree with nursing and triage notes Were old charts reviewed (outside hosp., previous admission, EMS record, old EKG, old radiological studies, urgent care reports/EKG's, snf records)? Report findings @ -Previous admission notes reviewed including lab work and urine culture which was positive for E. coli susceptible to cephalosporin Differential Diagnosis (chest pain, altered mental status, abdominal pain women, abdominal pain men, vaginal bleeding, weakness, fever, dyspnea, syncope, hea dache, dizziness, GI bleed, back pain, seizure, CVA, palpatations, mental health, musculoskeletal)? @ -Differential Abdominal Pain Women: Appendicitis, Cholecystitis, diverticulosis, ischemic bowel, pancreatitis, hepatitis, UTI, gastroenteritis, AAA, incarcerated hernia, bowel obstruction, constipation, inflammatory bowel, hepatitis, peptic ulcer disease, splenic infarction, perforated viscus, vulvitis, ovarian torsion, PID, kidney stone, placenta abruption, this is not meant to be an all-inclusive list EKG interpreted by me (3pts min.). @ -None X-rays interpreted by me (1pt min.). @ -None done CT interpreted by me (1pt min.). @ -None done U/S interpreted by me (1pt. min.). @ -None done What testing was considered but not performed or refused? (CT, X-rays, U/S, labs)? Why? @ -None What meds were considered but not given or refused? Why? @ -None Did you discuss the management of the patient with other professionals (professionals i.e. , PA, ROUTE DELIVERER, lab, RT, psych nurse, social work administrator, area forester, teacher, police officer, field nurse case manager)? Give summary @ -I spoke with Stephenie from [facility] who accepts admission for intractable pelvic pain with septic UTI Was smoking cessation discussed for >3mins.? @ -No Was critical care preformed (if so, how long)? @ -Yes, 45 minutes Were there social determinants of health that impacted care today? How? (Homelessness, low income, unemployed, alcoholism, drug addiction, transportation, low edu. Level, literacy, decrease access to med. care, nursing home, rehab)? @ -No Was there de-escalation of care discussed even if they declined (Discuss DNR or withdrawal of care, Hospice)? DNR status @ -No What co-morbidities impacted this encounter? (DM, HTN, Smoking, COPD, CAD, Cancer, CVA, ARF, Chemo, Hep., AIDS, mental health diagnosis, sleep apnea, morbid obesity)? @ -None Was patient admitted / discharged? Hospital course, mention meds given and route, prescriptions, significant lab abnormalities, going to OR and other pertinent info. @ - 49-year-old female presenting for worsening pelvic/back pain. 2 weeks ago, patient was diagnosed with likely metastatic uterine cancer. Patient is febrile at 100.8, heart rates 100 bpm.. Abdomen soft nontender. Provided with Tylenol, Toradol, and Dilaudid. Lab work remarkable for leukocytosis of 14.7 improved from previous 2 weeks ago, hemoglobin 7.6 comparable to previous values. Urinalysis remarkable for positive nitrates and greater than 182 white blood cells, red blood cells 103. Previous urine culture reviewed and urine positive for E. coli and susceptible to cephalosporins. Patient does meet criteria for septic UTI at this time and was started on IV fluids and IV antibiotics. Patient will be admitted to medicine for septic UTI with intractable pelvic pain secondary to metastatic uterine carcinoma with consultation to gynecology. Case was discussed with my ruddy ED attending Dr. Blackwell. Undiagnosed new problem with uncertain prognosis? @ -No Drug Therapy requiring intensive monitoring for toxicity (Heparin, Nitro, Insulin, Cardizem)? @ -No Were any procedures done? @ -No Diagnosis/symptom? @ -Septic urinary tract infection, intractable pelvic pain Acute, or Chronic, or Acute on Chronic? @ -Acute Uncomplicated (without systemic symptoms) or Complicated (systemic symptoms)? @ -Complicated Side effects of treatment? @ -No Exacerbation, Progression, or Severe Exacerbation? @ -No Poses a threat to life or bodily function? How? (Chest pain, [place], DC, pneumonia, PE, COPD, DKA, ARF, appy, cholecystitis, CVA, Diverticulitis, Homicidal, Suicidal, threat to staff... and all critical care pts) @ -Yes - Lab Data Result diagrams: 07/04/24 14:24 07/04/24 14:24 Lab Results 07/04/24 07/04/24 07/04/24 Range/Units 14:24 14:24 14:24 WBC 14.68 H (4.50-10.00) 10*3/uL RBC 3.71 L (4.10-5.20) 10*6/uL Hgb 7.6 L (12.0-15.0) g/dL Hct 26.6 L (37.2-46.3) % MCV 71.7 L (80.0-97.0) fL MCH 20.5 L (27.0-32.0) pg MCHC 28.6 L (32.0-37.0) g/dL Plt Count 448 H (140-440) 10*3/uL MPV 9.7 (9.5-12.2) fL Immature Gran % (Auto) 0.3 % Neutrophils % 77.8 % Lymphocytes % 6.2 % Monocytes % 15.2 % Eosinophils % 0.2 % Basophils % 0.3 % Immature Gran # 0.05 H (0.00-0.04) 10*3/uL Neutrophils # 11.41 H (1.80-7.70) 10*3/uL Lymphocytes # 0.91 (0.90-5.00) 10*3/uL Monocytes # 2.23 H (0.20-1.00) 10*3/uL Eosinophils # 0.03 L (0.04-0.35) 10*3/uL Basophils # 0.05 (0.00-0.10) 10*3/uL Sodium 137 (137-145) mmol/L Potassium 3.9 (3.5-5.1) mmol/L Chloride 104 (98-107) mmol/L Carbon Dioxide 24 (22-30) mmol/L Anion Gap 9 mmol/L BUN 16 (7-17) mg/dL Creatinine 0.90 (0.52-1.04) mg/dL Est GFR (CKD-EPI)AfAm 87 (>60 ml/min/1.73 sqM) Est GFR (CKD-EPI)NonAf 75 (>60 ml/min/1.73 sqM) Glucose 93 (74-99) mg/dL Plasma Lactic Acid Boy 1.9 (0.7-2.0) mmol/L Calcium 9.6 (8.4-10.2) mg/dL Total Bilirubin 0.7 (0.2-1.3) mg/dL AST 37 H (14-36) U/L ALT 23 (4-34) U/L Alkaline Phosphatase 121 (38-126) U/L Total Protein 6.8 (6.3-8.2) g/dL Albumin 3.5 (3.5-5.0) g/dL Urine Color Urine Appearance (Clear) Urine pH (5.0-8.0) Ur Specific [place] (1.001-1.035) Urine Protein (Negative) Urine Glucose (UA) (Negative) Urine Ketones (Negative) Urine Blood (Negative) Urine Nitrite (Negative) Urine Bilirubin (Negative) Urine Urobilinogen (<2.0) mg/dL Ur Leukocyte Esterase (Negative) Urine RBC (0-5) /hpf Urine WBC (0-5) /hpf Ur Squamous Epith Cells (0-4) /hpf Urine Bacteria (None) /hpf Urine Mucus (None) /hpf Urine HCG, Qual (Not Detectd) Influenza Type A (PCR) (Not Detectd) Influenza Type B (PCR) (Not Detectd) RSV (PCR) (Not Detectd) SARS-CoV-2 (PCR) (Not Detectd) 07/04/24 07/04/24 07/04/24 Range/Units 14:28 14:28 14:28 WBC (4.50-10.00) 10*3/uL RBC (4.10-5.20) 10*6/uL Hgb (12.0-15.0) g/dL Hct (37.2-46.3) % MCV (80.0-97.0) fL MCH (27.0-32.0) pg MCHC (32.0-37.0) g/dL Plt Count (140-440) 10*3/uL MPV (9.5-12.2) fL Immature Gran % (Auto) % Neutrophils % % Lymphocytes % % Monocytes % % Eosinophils % % Basophils % % Immature Gran # (0.00-0.04) 10*3/uL Neutrophils # (1.80-7.70) 10*3/uL Lymphocytes # (0.90-5.00) 10*3/uL Monocytes # (0.20-1.00) 10*3/uL Eosinophils # (0.04-0.35) 10*3/uL Basophils # (0.00-0.10) 10*3/uL Sodium (137-145) mmol/L Potassium (3.5-5.1) mmol/L Chloride (98-107) mmol/L Carbon Dioxide (22-30) mmol/L Anion Gap mmol/L BUN (7-17) mg/dL Creatinine (0.52-1.04) mg/dL Est GFR (CKD-EPI)AfAm (>60 ml/min/1.73 sqM) Est GFR (CKD-EPI)NonAf (>60 ml/min/1.73 sqM) Glucose (74-99) mg/dL Plasma Lactic Acid Boy (0.7-2.0) mmol/L Calcium (8.4-10.2) mg/dL Total Bilirubin (0.2-1.3) mg/dL AST (14-36) U/L ALT (4-34) U/L Alkaline Phosphatase (38-126) U/L Total Protein (6.3-8.2) g/dL Albumin (3.5-5.0) g/dL Urine Color Yellow Urine Appearance Turbid H (Clear) Urine pH 5.5 (5.0-8.0) Ur Specific [place] 1.018 (1.001-1.035) Urine Protein 1+ H (Negative) Urine Glucose (UA) Negative (Negative) Urine Ketones Negative (Negative) Urine Blood Large H (Negative) Urine Nitrite Positive H (Negative) Urine Bilirubin Negative (Negative) Urine Urobilinogen <2.0 (<2.0) mg/dL Ur Leukocyte Esterase Large H (Negative) Urine RBC 103 H (0-5) /hpf Urine WBC >182 H (0-5) /hpf Ur Squamous Epith Cells 1 (0-4) /hpf Urine Bacteria Many H (None) /hpf Urine Mucus Occasional H (None) /hpf Urine HCG, Qual Not Detected (Not Detectd) Influenza Type A (PCR) Not Detected (Not Detectd) Influenza Type B (PCR) Not Detected (Not Detectd) RSV (PCR) Not Detected (Not Detectd) SARS-CoV-2 (PCR) Not Detected (Not Detectd) Disposition Clinical Impression: Sepsis secondary to UTI, Intractable abdominal pain Disposition: ADMITTED IP TO THIS [facility] Time of Disposition: 17:22
[2024-07-04] MEDS: SODIUM CHLORIDE 0.9% 1,000 ML IV STA ×3 (14:17→18:36)
[2024-07-04] MEDS: ACETAMINOPHEN TAB 500 MG TAB PO STA (14:18)
[2024-07-04] MEDS: KETOROLAC 15 MG/ML 1 ML VIAL IVP STA (14:20)
[2024-07-04] MEDS: HYDROmorphone 1 MG/ML 1 ML SYRINGE IVP STA (14:28)
[2024-07-04 14:38] LABS: Basophils # (A) 0.05 10*3/uL (0.00-0.10); Basophils % (A) 0.3 %; Eosinophils # (A) 0.03 10*3/uL (0.04-0.35); Eosinophils % (A) 0.2 %; HCT 26.6 % (37.2-46.3); HGB 7.6 g/dL (12.0-15.0); Lymphocytes # (A) 0.91 10*3/uL (0.90-5.00); Lymphocytes % (A) 6.2 %; MCH 20.5 pg (27.0-32.0); MCHC 28.6 g/dL (32.0-37.0); MCV 71.7 fL (80.0-97.0); Mean Platelet Volume 9.7 fL (9.5-12.2); Monocytes # (A) 2.23 10*3/uL (0.20-1.00); Monocytes % (A) 15.2 %; Neutrophils # (A) 11.41 10*3/uL (1.80-7.70); Neutrophils % (A) 77.8 %; Platelet Count 448 10*3/uL (140-440); RBC 3.71 10*6/uL (4.10-5.20); RDW 21.1 % (11.5-14.5); WBC 14.68 10*3/uL (4.50-10.00)
[2024-07-04 14:51] LABS: ALT 23 U/L (4-34); AST 37 U/L (14-36); African American GFR (CKD) 87 (>60 ml/min/1.73 sqM); Albumin 3.5 g/dL (3.5-5.0); Alkaline Phosphatase 121 U/L (38-126); Anion Gap 9 mmol/L; Blood Urea Nitrogen 16 mg/dL (7-17); Calcium 9.6 mg/dL (8.4-10.2); Carbon Dioxide 24 mmol/L (22-30); Chloride 104 mmol/L (98-107); Glucose 93 mg/dL (74-99); Non-African American GFR(CKD) 75 (>60 ml/min/1.73 sqM); Potassium 3.9 mmol/L (3.5-5.1); Sodium 137 mmol/L (137-145); Total Bilirubin 0.7 mg/dL (0.2-1.3); Total Protein 6.8 g/dL (6.3-8.2)
[2024-07-04 15:19] LABS: Influenza A Not Detected (Not Detectd); Influenza B Not Detected (Not Detectd); RSV Not Detected (Not Detectd)
[2024-07-04 15:47] LABS: Appearance,Urine Turbid (Clear); Bacteria,Urine Many /hpf; Bilirubin,Urine Negative (Negative); Blood,Urine Large (Negative); Color,Urine Yellow; Glucose,Urine (UA) Negative (Negative); Ketones,Urine Negative (Negative); Leukocyte Esterase,Urine Large (Negative); Mucus,Urine Occasional /hpf; Nitrite,Urine Positive (Negative); PH, Urine 5.5 (5.0-8.0); Protein,Urine 1+ (Negative); RBC,Urine 103 /hpf (0-5); Specific Gravity,Urine 1.018 (1.001-1.035); Squamous Epithelial Cell,Urine 1 /hpf (0-4); Urobilinogen,Urine <2.0 mg/dL (<2.0); WBC,Urine >182 /hpf (0-5)
[2024-07-04] MEDS ORDERED: NALOXONE 0.4 MG/ML 1 ML VIAL IV PRN (17:11)
[2024-07-04] MEDS ORDERED: ONDANSETRON 4 MG/2 ML VIAL IVP PRN (17:11)
[2024-07-04] MEDS: KETOROLAC 15 MG/ML 1 ML VIAL IVP PRN (21:30)
[2024-07-04] MEDS: HYDROmorphone 1 MG/ML 1 ML SYRINGE IVP PRN (22:08)
[2024-07-05] MEDS: ACETAMINOPHEN TAB 325 MG TAB PO PRN (01:33)
[2024-07-05] MEDS ORDERED: oxyCODONE-APAP 7.5-325MG 1 EACH TAB PO PRN (12:02)
[2024-07-05] MEDS ORDERED: ACETAMINOPHEN PO PRN (12:02)
[2024-07-05] MEDS ORDERED: DOCUSATE 100 MG CAP PO PRN (12:02)
[2024-07-05] MEDS ORDERED: [UNRECOGNIZED DRUG - OTHER] PO PRN (12:02)
[2024-07-05] MEDS ORDERED: traMADol 50 MG TAB PO PRN (12:02)
[2024-07-05] MEDS ORDERED: ALPRAZolam 0.5 MG TAB PO PRN (12:02)
[2024-07-05] MEDS ORDERED: IBUPROFEN 800 MG TAB PO PRN (12:02)
[2024-07-05] MEDS: PARoxetine 20 MG TAB PO SCH (12:48)
[2024-07-05] MEDS: FERROUS SULFATE 325 MG TAB PO SCH (12:48)
[2024-07-05] MEDS: PANTOPRAZOLE 40 MG TABLET PO SCH (12:48)
--- NOTE | 2024-07-05 14:59 | US ---
EXAMINATION TYPE: US venous doppler duplex LE RT DATE OF EXAM: 07/05/2024 2:49 PM COMPARISON: NONE CLINICAL INDICATION: Female, 49 years old with history of leg swelling, pain; No redness, no blood th inners, Pain TECHNIQUE: The lower extremity deep venous system is examined utilizing real time linear array sonog siddharth with graded compression, color doppler sonography, and spectral doppler. SIDE PERFORMED: Right FINDINGS: VESSELS IMAGED: Common Femoral Vein Deep Femoral Vein Greater Saphenous Vein * Femoral Vein Popliteal Vein Small Saphenous Vein * Proximal Calf Veins Area of the posterior tibial veins (* superficial vessels) Marine Extension Agent notes: Suboptimal due to patient body habitus Right Leg: Negative for acute DVT, Color Doppler imaging shows patency of the vessels. Spectral wave forms are within normal limits. IMPRESSION: Marine Extension Agent comments suboptimal assessment due to patient body habitus. No convincing findings of an occlusive/acute right lower extremity DVT. [facility], Workstation: [facility]ENTERDigital LegendsMARI, 07/05/2024 2:57 PM
[2024-07-05] MEDS: metFORMIN 500 MG TAB PO SCH (17:24)
[2024-07-05] MEDS: ACETAMINOPHEN TAB 500 MG TAB PO PRN (19:40)
[2024-07-05] MEDS: cefTRIAXone 2 GM in DEXTROSE 5% IN WATER 50 ML IVPB SCH (20:09)
--- NOTE | 2024-07-05 20:20 | US ---
EXAMINATION TYPE: US kidneys/renal and bladder DATE OF EXAM: 07/05/2024 COMPARISON: CT 06/21/2024, US 06/21/24 CLINICAL INDICATION: Female, 49 years old with history of flank pain, UTI; patient states flank pain. UTI. known UT mass TECHNIQUE: Grayscale imaging of the bilateral kidneys and urinary bladder: FINDINGS: EXAM MEASUREMENTS: Right Kidney: 9.7 x 5.0 x 5.2 cm Left Kidney: 12.4 x 7.2 x 6.8 cm slightly limited due to patient body habitus Right Kidney: wnl as best seen Left Kidney: wnl as best seen Bladder: patient recently voided, unable to visualize bladder. 18.7 x 20.4 x 19.6cm complex, heteroge neous area again seen within the midline pelvis Bilateral Jets seen: not seen There is no evidence for hydronephrosis at this point in time. No nephrolithiasis is seen. No renal masses are identified. Corticomedullary differentiation is maintained bilaterally. The urinary blad irving is nonvisualized. Large complex heterogenous lesion again seen within the midline pelvis with dejuan e internal vascularity. IMPRESSION: 1. No hydronephrosis or nephrolithiasis. 2. Redemonstration of large midline pelvic mass as seen on prior CT and ultrasound. [facility], , 07/05/2024 8:18 PM
--- NOTE | 2024-07-05 22:30 | P.HPIM ---
History of Present Illness H&P Date: 07/05/24 Chief Complaint: Abdominal pain Patient is in 49-year-old female with known history of hypertension, hypothyroidism, PCOS, anxiety/depression panic disorder and prior history of smoking presents to ER with complaints of abdominal pain. Patient was recently admitted to hospital from 06/21/2024 to 06/24/2024. Patient had CT of the abdomen pelvis at that time showed suspected endometrial cancer with mets. Patient had workup including CT chest, ultrasound pelvic/transvaginal was done. Patient was supposed to follow-up with [facility] but her appointment was canceled. Patient presents to ER with severe abdominal pain. Patient was supposed to follow-up with [facility]ology [facility] recommended patient has to be seen especially since [place]. Patient has been taking Percocet and tramadol as needed without much relief at home. Denied any chest pain or shortness of breath. Denied any dysuria or hematuria. No cough or sputum production. Patient was febrile with Tmax 102.2 and was tachycardic. She was also complaining of right lower extremity more swollen than compared to right and also complains of pain. Laboratory data showed WBC 14.68 hemoglobin 7.6 and platelets 448 and MCV 71.7. Sodium 137 potassium 3.9 chloride 104 bicarb is 24 BUN 16 and creatinine 0.90 and liver renal is not elevated. Lactic acid 2.1 came down to 1.2 Urinalysis showed yellow turbid with large blood nitrite positive and large leukocyte esterase and elevated RBCs and WBCs. Influenza A B RSV and COVID-19 PCR not detected. Review of Systems Constitutional: Patient does have fever and chills.. No generalized weakness or weight loss. Abdomen: Patient does have nausea. No episodes of vomiting. Complains of abdominal pain mainly lower abdominal. No diarrhea. Cardiovascular: Patient denies any chest pain or short of breath no palpitations. Respiratory: patient denied any cough or sputum production. No shortness of breath Neurologic: Patient denied any numbness or tingling. no headache. Musculoskeletal: Patient denies any complaints of joint swelling or deformity. Skin: Negative Psychiatric: Negative Endocrine: No heat or cold intolerance. No recent weight gain. Genitourinary: No dysuria or hematuria. All other 14 point ROS negative except the above Past Medical History Past Medical History: Hypertension, Skin Disorder, Thyroid Disorder Additional Past Medical History / Comment(s): PCOS, agoraphobia, bronchitis, shingles a few times History of Any Multi-Drug Resistant Organisms: None Reported Past Surgical History: Breast Surgery, Cholecystectomy, Tonsillectomy Additional Past Surgical History / Comment(s): Lump removed from right breast in 2000 Past Anesthesia/Blood Transfusion Reactions: No Reported Reaction Additional Past Anesthesia/Blood Transfusion Reaction / Comment(s): Pt needs a small tube in throat when needing anesthesia Past Psychological History: Anxiety, Depression, Panic Disorder Smoking Status: Former smoker Past Alcohol Use History: Rare Past Drug Use History: None Reported Medications and Allergies Home Medications Medication Instructions Recorded Confirmed Type ALPRAZolam [Xanax] 0.5 mg PO DAILY PRN 06/22/24 07/04/24 History Acetaminophen Tab [Tylenol] 1,000 mg PO Q6H PRN 06/22/24 07/04/24 History Acetaminophen/Pamabrom [Midol 2 tab PO Q8H PRN 06/22/24 07/04/24 History Caplet] Ibuprofen [Motrin Ib] 800 mg PO Q6H PRN 06/22/24 07/04/24 History Lisdexamfetamine Dimesylate 70 mg PO DAILY 06/22/24 07/04/24 History [Vyvanse] Norethindrone [Laura] 0.35 mg PO DAILY 06/22/24 07/04/24 History PARoxetine HCL [Paxil] 40 mg PO DAILY 06/22/24 07/04/24 History metFORMIN HCL [Glucophage] 500 mg PO BID-W/MEALS 06/22/24 07/04/24 History Ferrous Sulfate [Feosol] 325 mg PO DAILY #30 tab 06/24/24 07/04/24 Rx Pantoprazole [Protonix] 40 mg PO DAILY #30 tab 06/24/24 07/04/24 Rx traMADol HCl [Ultram] 50 mg PO TID PRN #12 tab 06/24/24 07/04/24 Rx Docusate [Colace] 100 mg PO BID PRN 07/04/24 07/04/24 History oxyCODONE-APAP 7.5-325MG [Percocet 1 tab PO Q4HR PRN 07/04/24 07/04/24 History 7.5-325 mg] Allergies Allergy/AdvReac Type Severity Reaction Status Date / Time bee venom protein (honey bee) Allergy Swelling/We Verified 07/04/24 17:38 lts/Dyspnea Penicillins Allergy itching Verified 07/04/24 17:38 throat and ears shellfish derived [Shellfish] Allergy Anaphylaxis Verified 07/04/24 17:38 Physical Exam Vitals: Vital Signs Temp Pulse Resp BP Pulse Ox 07/05/24 19:28 102.2 F H 101 H 16 157/74 98 07/05/24 11:48 98.4 F 89 15 142/87 98 07/05/24 07:08 98.8 F 92 15 159/76 97 07/05/24 02:48 100.1 F H 07/05/24 02:00 101.1 F H 100 14 143/80 97 Intake and Output 07/05/24 07/05/24 07/05/24 06:59 14:59 22:59 Intake Total 1080 1200 Balance 1080 1200 Intake: Oral 1080 1200 Other: Voiding Method Toilet # Voids 1 2 PHYSICAL EXAMINATION: Patient is sitting in a chair, no acute distress, awake alert and oriented. Morbidly obese. HEENT: Normocephalic. Neck is supple. Pupils reactive. Nostrils clear. Oral cavity is moist. Neck reveals no JVD, carotid bruits, or thyromegaly. CHEST EXAMINATION: Trachea is central. Symmetrical expansion. Bibasilar diminished sounds otherwise lung berman clear to auscultation and percussion. CARDIAC: Normal S1, S2 with no gallops. No murmurs ABDOMEN: Soft. Bowel sounds normal. No organomegaly. No abdominal bruits. Extremities: Bilateral lower extremity trace edema with right greater than left and tenderness in the upper leg and calf region.. No clubbing or cyanosis Neurologically awake, alert, oriented x3 with well-coordinated movements. No f ocal deficits noted Skin: No rash or skin lesions. Psychiatric: Coperative. Nonsuicidal, anxious. Musculoskeletal: No joint swelling or deformity. Normal range of motion. Results CBC & Chem 7: 07/04/24 14:24 07/04/24 14:24 Labs: Abnormal Lab Results - Last 24 Hours (Table) 07/05/24 Range/Units 02:39 Plasma Lactic Acid Boy 2.1 H* (0.7-2.0) mmol/L Microbiology - Last 24 Hours (Table) 07/04/24 14:28 Urine Culture - Preliminary Urine,Voided Gram Neg Bacilli Thrombosis Risk Factor Assmnt - DVT/VTE Prophylaxis DVT/VTE Prophylaxis: Pharmacologic Prophylaxis ordered - Choose All That Apply Any of the Below Risk Factors Present?: Yes Each Factor Represents 1 point: Age 41-60 years, Obesity (BMI >25) Other Risk Factors: No Other congenital or acquired thrombophilia - If yes, enter type in comment: No Thrombosis Risk Factor Assessment Total Risk Factor Score: 2 Thrombosis Risk Factor Assessment Level: Low Risk Assessment and Plan Assessment: Acute urinary tract infection Sepsis secondary to UTI. Midline pelvic mass/uterine mass. Workup pending.. Abdominal pain and intermittent vaginal bleeding Microcytic anemia likely iron patient History of PCOS Hypothyroidism Anxiety/depression and panic disorder Prior history of smoking Morbid obesity BMI 63.8 DVT prophylax with heparin subcu and GI prophylaxis with PPI Plan: Patient will be started on gentle IV hydration with normal saline. Continue with antibiotics ceftriaxone 2 g daily and follow-up urine culture report. Continue pain management with Dilaudid. Oncology was consulted for further workup for uterine mass/suspected malignancy. Continue to follow closely. Prognosis is guarded. Time with Patient: Greater than 30
[2024-07-05] MEDS: SODIUM CHLORIDE 0.9% 1,000 ML IV SCH (23:49)
[2024-07-05] MEDS: HEPARIN SODIUM,PORCINE 5,000 UNIT/ML 1 ML VIAL SQ SCH (23:51)
[2024-07-06 08:41] LABS: BUN/Creat Ratio 12.89 Ratio (12.00-20.00); Blood Urea Nitrogen 11.6 mg/dL (9.0-27.0); Calcium 8.6 mg/dL (8.7-10.3); Carbon Dioxide 23.6 mmol/L (21.6-31.8); Chloride 102 mmol/L (96-109); Glucose 103 mg/dL (70-110); Sodium 137 mmol/L (135-145)
[2024-07-06] MEDS: Lisdexamfetamine Dimesylate [Vyvanse] 70 MG Capsule PO SCH (08:49)
[2024-07-06] MEDS: NORETHINDRONE 0.35 MG PO SCH (08:51)
[2024-07-06 11:10] LABS: Basophils # (A) 0.05 X 10*3/uL (0.00-0.10); Basophils % (A) 0.4 %; Eosinophils # (A) 0.06 X 10*3/uL (0.04-0.35); Eosinophils % (A) 0.5 %; HCT 25.1 % (37.2-46.3); HGB 6.9 g/dL (12.0-15.0); Hypochromasia (M) 2+ (None Seen); Lymphocytes # (A) 1.17 X 10*3/uL (0.90-5.00); Lymphocytes % (A) 9.5 %; MCH 20.4 pg (27.0-32.0); MCHC 27.5 g/dL (32.0-37.0); MCV 74.3 FL (80.0-97.0); Mean Platelet Volume 10.3 FL (9.5-12.2); Microcytosis (M) 2+ (None Seen); Monocytes % (A) 23.5 %; NRBC Per 100 WBC 0 X 10*3/uL (0.00-0.01); Neutrophils # (A) 8.09 X 10*3/uL (1.80-7.70); Neutrophils % (A) 65.5 %; Platelet Count 465 X 10*3/uL (140-440); RBC 3.38 X 10*6/uL (4.10-5.20); RDW 21.3 % (11.5-14.5); WBC 12.34 X 10*3/uL (4.50-10.00)
--- NOTE | 2024-07-06 16:09 | P.CONS ---
History of Present Illness - Reason for Consult Consult date: 07/06/24 Intractable pelvic pain Requesting physician: Verito Correa - Chief Complaint Pelvic plain, vaginal bleeding - History of Present Illness Mrs. Eden is a 49-year-old female patient who was only recently admitted at the end of May, about 2 weeks ago, with complaints of abdominal pain and labile vaginal bleeding. She was seen by gynecology, there is a report of heavy menses during her lifetime but, in the past 6 months some days she was having daily bleeding, very heavy, sometimes clotting. Pelvic ultrasound and CTAP showed a 16 cm enlarged uterus with hypoechoic mass within, enlarged pelvic lymphadenopathy, pulmonary nodes concerning for an endometrial cancer with metastasis. Patient was supposed to have a follow-up with gynecology but recommendation is for patient to be evaluated by her [facility] oncologist. Patient reports that she is "more out" the pain is in the suprapubic area as well into the middle of her back. She has lost about 100 pounds over the last year but this was on purpose. Right at this moment she is not having any vaginal bleeding. She has not had a biopsy. Patient is agoraphobia. Her sister is on the phone while we are discussing her case Patient denies fevers, chills, nausea or vomiting, chest pain, unusual shortness of breath or difficulty in breathing, she is noticing more bloating in the abdomen. Patient had a Tmax of 102.2 on admit, pancultures are pending, empiric antibiotics ordered WBC 12.3, hemoglobin 6.9, hematocrit 25.1, platelet count 465,000. Absolute neutrophilia appreciated. Lactic acid 2.1 on admit. Patient likely has iron deficiency. 1 unit of PRBCs has been ordered. Review of Systems 10 point review of systems is negative except as stated in HPI Past Medical History Past Medical History: Hypertension, Skin Disorder, Thyroid Disorder Additional Past Medical History / Comment(s): PCOS, agoraphobia, bronchitis, shingles a few times History of Any Multi-Drug Resistant Organisms: None Reported Past Surgical History: Breast Surgery, Cholecystectomy, Tonsillectomy Additional Past Surgical History / Comment(s): Lump removed from right breast in 2000 Past Anesthesia/Blood Transfusion Reactions: No Reported Reaction Additional Past Anesthesia/Blood Transfusion Reaction / Comm: Pt needs a small tube in throat when needing anesthesia Past Psychological History: Anxiety, Depression, Panic Disorder Smoking Status: Former smoker Past Alcohol Use History: Rare Past Drug Use History: None Reported Medications and Allergies Home Medications Medication Instructions Recorded Confirmed Type ALPRAZolam [Xanax] 0.5 mg PO DAILY PRN 06/22/24 07/04/24 History Acetaminophen Tab [Tylenol] 1,000 mg PO Q6H PRN 06/22/24 07/04/24 History Acetaminophen/Pamabrom [Midol 2 tab PO Q8H PRN 06/22/24 07/04/24 History Caplet] Ibuprofen [Motrin Ib] 800 mg PO Q6H PRN 06/22/24 07/04/24 History Lisdexamfetamine Dimesylate 70 mg PO DAILY 06/22/24 07/04/24 History [Vyvanse] Norethindrone [Laura] 0.35 mg PO DAILY 06/22/24 07/04/24 History PARoxetine HCL [Paxil] 40 mg PO DAILY 06/22/24 07/04/24 History metFORMIN HCL [Glucophage] 500 mg PO BID-W/MEALS 06/22/24 07/04/24 History Ferrous Sulfate [Feosol] 325 mg PO DAILY #30 tab 06/24/24 07/04/24 Rx Pantoprazole [Protonix] 40 mg PO DAILY #30 tab 06/24/24 07/04/24 Rx traMADol HCl [Ultram] 50 mg PO TID PRN #12 tab 06/24/24 07/04/24 Rx Docusate [Colace] 100 mg PO BID PRN 07/04/24 07/04/24 History oxyCODONE-APAP 7.5-325MG [Percocet 1 tab PO Q4HR PRN 07/04/24 07/04/24 History 7.5-325 mg] Allergies Allergy/AdvReac Type Severity Reaction Status Date / Time bee venom protein (honey bee) Allergy Swelling/We Verified 07/04/24 17:38 lts/Dyspnea Penicillins Allergy itching Verified 07/04/24 17:38 throat and ears shellfish derived [Shellfish] Allergy Anaphylaxis Verified 07/04/24 17:38 Physical Exam Vitals: Vital Signs Temp Pulse Pulse Resp BP BP Pulse Ox 07/06/24 14:17 98.4 F 78 16 135/67 100 07/06/24 13:57 98.4 F 81 17 135/83 100 07/06/24 13:56 98.4 F 82 17 135/83 07/06/24 13:44 98.5 F 82 16 136/84 100 07/06/24 13:07 97.9 F 77 16 101/70 100 07/06/24 07:02 98.2 F 76 17 119/69 98 07/06/24 01:42 98.1 F 83 16 123/73 95 07/05/24 19:28 102.2 F H 101 H 16 157/74 98 Intake and Output 07/06/24 07/06/24 07/06/24 06:59 14:59 22:59 Intake Total 480 Balance 480 Intake: Oral 480 Blood Product 0 Rc As-1 Unit 0 [id number] Other: # Voids 3 - Constitutional General appearance: cooperative, morbidly obese, no acute distress - EENT Eyes: anicteric sclerae, EOMI ENT: hearing grossly normal, normal oropharynx - Neck Neck: no lymphadenopathy - Respiratory Respiratory: bilateral: CTA - Cardiovascular Rhythm: regular Heart sounds: normal: S1, S2 Abnormal Heart Sounds: no systolic murmur, no diastolic murmur, no rub, no S3 Gallop, no S4 Gallop, no click, no other leg Peripheral Edema: bilateral: Trace - Gastrointestinal General gastrointestinal: no absent bowel sounds, no decreased bowel sounds, no distended, no hepatomegaly, no hyperactive bowel sounds, normal bowel sounds, no organomegaly, no rigid, no scaphoid, soft, no splenomegaly, tenderness, no umbilical hernia, no ventral hernia Localized gastrointestinal: tender: suprabubic - Integumentary Integumentary: pale - Neurologic Neurologic: CNII-XII intact - Musculoskeletal Musculoskeletal: strength equal bilaterally - Psychiatric Psychiatric: A&O x's 3, appropriate affect, intact judgment & insight Results CBC & Chem 7: 07/06/24 04:54 07/06/24 04:54 Labs: Abnormal Lab Results - Last 24 Hours (Table) 07/06/24 07/06/24 07/06/24 Range/Units 04:54 04:54 11:45 WBC 12.34 H (4.50-10.00) X 10*3/uL RBC 3.38 L (4.10-5.20) X 10*6/uL Hgb 6.9 A* (12.0-15.0) g/dL Hct 25.1 L (37.2-46.3) % MCV 74.3 L (80.0-97.0) FL MCH 20.4 L (27.0-32.0) pg MCHC 27.5 L (32.0-37.0) g/dL RDW 21.3 H (11.5-14.5) % Plt Count 465 H (140-440) X 10*3/uL Immature Gran # 0.07 H (0.00-0.04) X 10*3/uL Neutrophils # 8.09 H (1.80-7.70) X 10*3/uL Monocytes # 2.90 H (0.20-1.00) X 10*3/uL Hypochromasia (manual) 2+ A (None Seen) Microcytosis (manual) 2+ A (None Seen) Calcium 8.6 L (8.7-10.3) mg/dL Crossmatch See Detail Microbiology - Last 24 Hours (Table) 07/04/24 18:32 Blood Culture - Preliminary Blood 07/04/24 14:28 Urine Culture - Preliminary Urine,Voided Gram Neg Bacilli Comments: Venous Doppler right lower extremity negative for DVT. Ultrasound kidneys/ureters and bladder. No evidence for hydronephrosis CT scan - abdomen: report reviewed CT scan - chest: report reviewed CT scan - pelvis: report reviewed Venous US: report reviewed Assessment and Plan (1) Intractable abdominal pain Current Visit: Yes Status: Acute Priority: High Code(s): R10.9 - UNSPECIFIED ABDOMINAL PAIN SNOMED Code(s): 13766831 (2) Anemia Current Visit: Yes Status: Acute Priority: High Code(s): D64.9 - ANEMIA, UNSPECIFIED SNOMED Code(s): 124980239 (3) Uterine malignancy Current Visit: Yes Status: Suspected Priority: High Code(s): C55 - MALIGNANT NEOPLASM OF UTERUS, PART UNSPECIFIED SNOMED Code(s): 902684091 Plan: Intractable abdominal pain - Most likely secondary to the large uterine mass described in imaging. -There is no [facility] oncology locally. Pt needs to be transferred out for biopsy - Case was discussed with the patient and her sister. Patient has severe agoraphobia. Pt and sister expressed concerns are for the patient's pain as well as bleeding from the mass. -Case was discussed with the Attending/Nurse Practitioner. The patient is going to have to be transferred out for higher level of care/Specialist assessment. Would appreciate taking into consideration patient's pain as well as bleeding. Patient and sister are very aware of the lymphadenopathy as well as the nodules present in the lungs. It was explained to them that typically surgery is not recommended in these cases as it does not change the outcome. But, patient and sister would like surgery, if only for pain control and decreased bleeding. This was reviewed with attending [facility] WORK[facility]. Defer to [facility] Onc Surgeon. Anemia, secondary to vaginal bleeding - Patient's hemoglobin 6.8, a unit of packed red blood cells has been ordered. - Transfuse for hemoglobin less than 7 or if patient is symptomatic. -Likely patient is going to be iron deficient. This is something that can be addressed in a less acute setting. It is more important that the patient receive biopsy and treatment for pain and bleeding Uterine mass - Patient presented just a few weeks ago with complaints of abdominal pain. 06/21/24 transvaginal ultrasound reporting 17 x 12.2 x 15.1 cm complex area seen. 7.1 x 6.9 x 7.2 cm hyperechoic area seen within the vascularity abdomen and pelvis CT 06/21/2024 reporting enlarged heterogenous enhancing uterine mass measuring up to 16.4 cm, abnormal thickened endometrium, indeterminate right ovarian cystic lesion. Multiple abnormally enlarged periaortic and iliac chain lymph nodes. Multiple solid-appearing pulmonary nodules in the lung bases. CT of the chest 06/22/2024 scattered pulmonary nodules in the lungs measuring up to 27 mm concerning for metastatic disease -Patient unfortunately has not made it to any follow-up appointments yet because she is having intractable pain again as well as vaginal bleeding. - Concerns for a uterine malignancy that is spread to the lymph nodes as well as the lungs was discussed with the patient and her sister on the phone. They verbalized understanding. As above, patient and sisters biggest concern is pain as well as persistent and heavy vaginal bleeding. Patient has agoraphobia which makes it very challenging for her to get out of the house. - Working with attending team for transfer for biopsies/possible surgery. - Patient can return locally for systemic treatment of her disease and ongoing follow-up and monitoring. Will make sure patient has a follow-up. Doctor attests: I performed a history and physical examination of this patient, developed impression and plan of care. Discussed with dictator. I agree with dictators note, documented as a scribe.
[2024-07-06 17:15] LABS: INR 1.1 (<1.2); Partial Thromboplastin Time 25.5 sec (22.0-30.0); Prothrombin Time 12.4 sec (10.0-12.5)
[2024-07-06 19:27] VITALS: BP 125/83; PULSE 85; RESP 18; TEMP 99.2
--- NOTE | 2024-07-06 21:51 | P.DS ---
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 Midline pelvic mass/uterine mass. Workup pending.. Per oncology recommending transfer for tertiary treatment and intervention Abdominal pain and intermittent vaginal bleeding, worsening over the last week Microcytic anemia likely iron. Hemoglobin 6.9 today and will transfuse 1 unit PRBC History of PCOS Hypothyroidism Anxiety/depression and panic disorder Prior history of smoking Morbid obesity BMI 63.8 DVT prophylax with heparin subcu and GI prophylaxis with PPI Full code Discharge disposition Patient is being transferred in a stable condition with guarded prognosis to [facility] in [place] for gynecologic evaluation and possible surgical intervention. Patient will follow-up with primary care provider in the outpatient setting upon discharge. Patient is to continue with IV ceftriaxone and will also need outpatient follow-up with oncology as scheduled. Total time taken is greater than 35 minutes. Hospital course This is a 49-year-old female who was recently admitted with increased vaginal bleeding and abdominal pain. Patient was recently hospitalized at the end of last month with abdominal pain was noted to have a significantly large uterine mass and was scheduled for outpatient intervention including biopsy although her appointment was canceled on her by the physician. Patient continued to have increasing abdominal pain and symptomatic with bleeding came here for further evaluation. Oncology evaluated the patient recommending transfer for tertiary treatment for at least biopsy and/or possible surgical intervention including hysterectomy. Patient initially reluctant to transfer as patient has s ignificant agoraphobia although has support system including friends and sister and is now agreeable. [facility] transfer team contacted and discussed the admission with surgeon Dr. Marlene Traylor and Dr. Neptali Sandoval per medicine for further evaluation. Per transfer team patient does not require insurance authorization and is agreeable to the transfer. Patient did also have abnormal urine on admission and was started on ceftriaxone and preliminary urine culture showing gram-negative bacilli. Hemoglobin was 6.9 today and was given a unit of PRBC prior to transfer. Medical record was copied and discs made of all images taken on this admission and previous admission. Currently no reports of chest pain, shortness of breath, or palpitations. Patient is afebrile. No reports of nausea or vomiting and patient is tolerating diet. Patient will be going to [facility] in [place] today. Guarded prognosis Physical exam: Gen: This is a 49-year-old female who is awake, alert and oriented x 3, well- developed, morbidly obese, pale HEENT: Head is atraumatic, normocephalic. Pupils equal, round. Sclerae is anicteric. NECK: Supple. No JVD. No lymphadenopathy. No thyromegaly. LUNGS: Clear to auscultation. No wheezes or rhonchi. No intercostal retractions. HEART: Regular rate and rhythm. No murmur. ABDOMEN: Soft. Bowel sounds are present. No masses. No tenderness. EXTREMITIES: No pedal edema. No calf tenderness. NEUROLOGICAL: Patient is awake, alert and oriented x3. Cranial nerves 2 through 12 are grossly intact. Please refer to medication reconciliation sheet for a list of medications. The impression and plan of care has been dictated by Stephenie Miller, Nurse Practitioner as directed. Dr. Madeline MD I have performed a history and examination and MDM of this patient, discussed the same with the dictator, and agree with the dictator's assessment and plan as written ,documented as a scribe. Based on total visit time, I have performed more than 50% of the visit. Patient Condition at Discharge: Fair Plan - Discharge Summary Discharge Rx Participant: No New Discharge Prescriptions: No Action Norethindrone [Laura] 0.35 mg PO DAILY Lisdexamfetamine Dimesylate [Vyvanse] 70 mg PO DAILY Acetaminophen/Pamabrom [Midol Caplet] 2 tab PO Q8H PRN PRN Reason: Menstrual Cramps Acetaminophen Tab [Tylenol] 1,000 mg PO Q6H PRN PRN Reason: Pain Ibuprofen [Motrin Ib] 800 mg PO Q6H PRN PRN Reason: Pain Pantoprazole [Protonix] 40 mg PO DAILY #30 tab Ferrous Sulfate [Feosol] 325 mg PO DAILY #30 tab oxyCODONE-APAP 7.5-325MG [Percocet 7.5-325 mg] 1 tab PO Q4HR PRN PRN Reason: Pain metFORMIN HCL [Glucophage] 500 mg PO BID-W/MEALS ALPRAZolam [Xanax] 0.5 mg PO DAILY PRN PRN Reason: Anxiety PARoxetine HCL [Paxil] 40 mg PO DAILY traMADol HCl [Ultram] 50 mg PO TID PRN #12 tab PRN Reason: Pain 4-6 Docusate [Colace] 100 mg PO BID PRN PRN Reason: Constipation Discharge Medication List ALPRAZolam [Xanax] 0.5 mg PO DAILY PRN 06/22/24 [History] Acetaminophen Tab [Tylenol] 1,000 mg PO Q6H PRN 06/22/24 [History] Acetaminophen/Pamabrom [Midol Caplet] 2 tab PO Q8H PRN 06/22/24 [History] Ibuprofen [Motrin Ib] 800 mg PO Q6H PRN 06/22/24 [History] Lisdexamfetamine Dimesylate [Vyvanse] 70 mg PO DAILY 06/22/24 [History] Norethindrone [Laura] 0.35 mg PO DAILY 06/22/24 [History] PARoxetine HCL [Paxil] 40 mg PO DAILY 06/22/24 [History] metFORMIN HCL [Glucophage] 500 mg PO BID-W/MEALS 06/22/24 [History] Ferrous Sulfate [Feosol] 325 mg PO DAILY #30 tab 06/24/24 [Rx] Pantoprazole [Protonix] 40 mg PO DAILY #30 tab 06/24/24 [Rx] traMADol HCl [Ultram] 50 mg PO TID PRN #12 tab 06/24/24 [Rx] Docusate [Colace] 100 mg PO BID PRN 07/04/24 [History] oxyCODONE-APAP 7.5-325MG [Percocet 7.5-325 mg] 1 tab PO Q4HR PRN 07/04/24 [History] Follow up Appointment(s)/Referral(s): Nonstaff,Physician [Primary Care Provider] - 1-2 days
[2024-07-06] MEDS: ALPRAZolam 1 MG TAB PO STA (22:06)
== END 2024-07-06 22:17 | disposition home or self-care (01) | DRG 872 ==
LOC: EC 12:16 → 5NMEDONC 17:10
PROVIDERS: ADMIT Hospitalist; ATTEND Hospitalist
PROC: 30233N1 Transfusion of Nonautologous Red Blood Cells into Peripheral Vein, Percutaneous Approach (ICD-10-PCS; principal; 2024-07-06)
DX: A41.50 Gram-negative sepsis, unspecified (principal); C79.82 Secondary malignant neoplasm of genital organs; C54.1 Malignant neoplasm of endometrium; Z68.44 Body mass index [BMI] 60.0-69.9, adult; F32.A Depression, unspecified; E03.9 Hypothyroidism, unspecified; I10 Essential (primary) hypertension; D50.9 Iron deficiency anemia, unspecified; N39.0 Urinary tract infection, site not specified; E66.01 Morbid (severe) obesity due to excess calories; F41.0 Panic disorder [episodic paroxysmal anxiety]; M54.50 Low back pain, unspecified; N93.9 Abnormal uterine and vaginal bleeding, unspecified; E28.2 Polycystic ovarian syndrome; N85.2 Hypertrophy of uterus; G89.3 Neoplasm related pain (acute) (chronic); F40.00 Agoraphobia, unspecified; Z87.891 Personal history of nicotine dependence; Z79.899 Other long term (current) drug therapy; Z79.84 Long term (current) use of oral hypoglycemic drugs; Z88.0 Allergy status to penicillin
CPT/HCPCS: 36415; 76770; 80048; 80053; 81001; 81025; 83036; 83605; 85025; 85610; 85730; 86304; 86850; 86900; 86901; 86920; 87040; 87077; 87086; 87186; 87635; 87636; 96361; 96374; 96375; 99291